=== PATIENT | male | born 1950 | race Caucasian/White ===

== ENCOUNTER 2017-01-10 09:51 | Inpatient (IN) ==
[2017-01-10] MEDS ORDERED: 0.9 % Sodium Chloride 1,000 ML ONE (13:42)
[2017-01-10] MEDS ORDERED: Naloxone 0.4 MG/ML INJ IVP PRN (13:49)
[2017-01-10] MEDS ORDERED: Ondansetron 4 MG/2 ML VIAL IVP PRN (13:49)
[2017-01-10] MEDS ORDERED: Acetaminophen 325 MG TABLET PO PRN (13:49)
[2017-01-10] MEDS ORDERED: Vancomycin 1,250 MG in D5% in Water 250 ML IVPB SCH (14:00)
--- NOTE | 2017-01-10 14:06 | Pulmonology Consult Note ---
Date of Encounter: 01/10/17 Time of Encounter: 14:05 Assessment and Plan (1) Shock Current Visit: Yes Status: Acute Shock is multifactorial. I suspect there is a component of hypovolemia, given poor PO intake for several days. Septic shock is also in the differential diagnosis, possible sources include an intra-abdominal source or catheter- related bloodstream infection (he has a Mediport in place). Also he is cold and clamped down on exam, cardiogenic shock seems less likely clinically, and I favor hypovolemia for this physical exam finding. * I will bolus him with an additional 2 L of isotonic fluids (he reportedly received 2 L in the emergency room prior to transfer), and continue LR infusion thereafter * Empiric treatment with vancomycin and Zosyn * Blood culture obtained from his Mediport at the outside hospital emergency room, I will also obtain a peripheral blood culture * Titrate norepinephrine for a goal mean arterial pressure of 65 mmHg * Added vasopressin and stress dose steroids (per home medication list he is on Decadron) * Will trend lactate (2) Abdominal pain Current Visit: No Status: Acute He has a very concerning abdominal exam with signs of peritonitis. I will obtain a stat CT scan of the abdomen with intravenous contrast (will aggressively hydrate prior to scan in light of acute kidney injury, due to severe nausea and vomiting he would not be tolerant of by mouth contrast). LFTs were unremarkable. I will check an amylase and lipase. As needed Dilaudid for abdominal pain. Will consult general surgery for evaluation, but I do not know if he will be a surgical candidate based on goals of care and underlying pancreatic cancer. Qualifiers: Abdominal location: unspecified location Qualified Code(s): R10.9 - Unspecified abdominal pain (3) Acute renal failure Current Visit: Yes Status: Acute Due to hypovolemia and ATN/hypoperfusion. Although his creatinine is technically within normal range, it is nearly doubled from his baseline. I suspect a chronically low creatinine due to malnutrition and poor muscle mass. * Continue aggressive IV fluid hydration and vasopressors to assist with renal perfusion * I did discuss the risk of intravenous contrast administration with the patient and his family, but I feel the benefit outweighs the risk in light of his acute abdomen Qualifiers: Acute renal failure type: with acute tubular necrosis Qualified Code(s): N17.0 - Acute kidney failure with tubular necrosis (4) Hematemesis Current Visit: Yes Status: Acute With intractable nausea/vomiting. Possible Radha-Michael tear. Hemoglobin was within normal range. I will give him twice daily intravenous proton pump inhibitor. Hold off on GI consult at this time, but we can reconsider based on clinical course. Nothing by mouth status. Qualifiers: Nausea presence: with nausea Qualified Code(s): K92.0 - Hematemesis; R11.0 - Nausea (5) Nausea & vomiting Current Visit: Yes Status: Acute Concern for acute intra-abdominal process such as bowel obstruction or bowel ischemia. As above, CT scan of the abdomen is pending. Intravenous Zofran when necessary. The shunt is attempting to focus more on comfort, and he does not want an NG tube placed. Qualifiers: Vomiting type: hematemesis Qualified Code(s): K92.0 - Hematemesis; R11.0 - Nausea (6) DNR (do not resuscitate) discussion Current Visit: Yes Status: Acute Patient has a history of pancreatic cancer. Review of his records reveals that he had an attempted Whipple procedure, which was aborted due to intraoperative findings. He is currently undergoing radiation therapy, and chemotherapy was reportedly held due to poor functional status. He clearly states DNR CCA DNI status. Prognosis is guarded, if he were to deteriorate further we would need to transition to comfort measures only and change CODE STATUS to DNR CC. History of Present Illness Consult date: 01/10/17 Requesting physician: Kyra Flores Reason for consult: other (shock) Chief complaint: Abdominal pain History of present illness: 66-year-old white male with a medical history significant for pancreatic cancer who presented to the [place] emergency department for evaluation of abdominal pain, nausea/vomiting, and poor by mouth intake. Evaluation revealed that the patient was in shock. He was given 2 L of IV fluids, antibiotics, and initiated on vasopressors. He was transferred to the [facility] for further evaluation and management. In speaking with the patient, he reports approximately 3 days of nausea and vomiting with poor by mouth intake. Nothing seems to make this better or worse. The abdominal pain has been progressive in nature. The pain is diffuse with significant tenderness to palpation throughout his belly. He has been unable to take his pain medication at home. He did had a bowel movement yesterday, which she reports was normal in color. He does admit to some hematemesis. He denies fever/chills. He has not urinated in the last 24 hours. Overall, he does feel the urge to urinate. No cough or sputum production. He does endorse some labored breathing. Past Med Surg Social Fam HX - Past Medical History Medical history: cancer Psychiatric history: no psych history - Past Surgical History Surgical History: other - Social History Smoking Status: Current every day smoker Packs per day: 1 Smokeless Tobacco Status: No Alcohol use: none Drug use: none - Family History Father Hx Family Cancer: Yes (pancreatic cancer) Medications and Allergies Ondansetron HCl 4 mg PO Q6H PRN #90 tablet 08/25/16 [Rx] Prochlorperazine Maleate [Compazine] 10 mg PO Q6HR PRN 08/31/16 [History] LORazepam [Lorazepam] 2 mg PO HS PRN #30 tablet 12/04/16 [Rx] Lipase/Protease/Amylase [Creon Dr 3,000 Units Capsule] 1 each PO BID 12/04/16 [ History] Dexamethasone [Decadron] 4 mg PO DAILY #21 tab 12/30/16 [Rx] HYDROcodone/Acet 5/325 mg [[place] 5-325 mg] 1 tab PO Q6H PRN #40 tab 12/30/16 [Rx ] Promethazine [Phenergan] 25 mg RC Q6HR PRN #40 supp.rect 01/06/17 [Rx] Fentanyl 12.5 mcg TD Q72H #10 patch.td72 01/08/17 [Rx] LORazepam [Ativan] 2 mg PO DAILY PRN #60 tablet 01/08/17 [Rx] Ondansetron ODT [Zofran ODT] 4 mg SL Q8HR PRN #10 tab.rapdis 01/08/17 [Rx] Oxycodone HCl 10 mg PO Q4H 01/10/17 [History] Allergies No Known Allergies Allergy (Verified 01/10/17 05:55) All Systems: A 10-system review of systems was performed and is negative for pertinent findings except as documented above in the HPI. Physical Examination Vital Signs: Vital signs reviewed. General: Ill-appearing man who is in acute distress and uncomfortable appearing Eyes: nonicteric ENT: oropharynx dry Neck: supple, no lymphadenopathy Lungs: Clear to auscultation bilaterally Cardiovascular: regular rate and rhythm Gastrointestinal: Abdomen is distended with diffuse tenderness to palpation and signs of peritonitis Integumentary: normal Extremities: Cool to the touch, no mottling noted Musculoskeletal: no deformities Neuro: normal mental status, non-focal exam Psych: mood appropriate, affect normal Results - Clinical Findings Intake & Output: Intake & Output 01/09/17 01/10/17 01/10/17 23:59 07:59 15:59 Weight 78.8 kg Consult Discharge Plan - Plan Referrals: NO,PCP [Primary Care Provider] -
[2017-01-10] MEDS: *HR* HYDROmorphone (PF) 1 MG/ML SYRINGE IVP PRN ×4 (14:26→23:32)
[2017-01-10] MEDS: 0.9 % Sodium Chloride 1,000 ML IVC SCH ×3 (14:27→16:24)
[2017-01-10] MEDS ORDERED: Norepinephrine 4 MG in D5% in Water 250 ML IVC SCH (14:30)
[2017-01-10 14:41] LABS: Amylase 8 Units/L (25-125)
[2017-01-10 14:42] LABS: Lipase < 4 Units/L (8-78)
[2017-01-10] MEDS: Vasopressin 20 UNIT in 0.9 % Sodium Chloride 50 ML IVC SCH (15:13)
[2017-01-10] MEDS: Piperacillin/Tazobactam 3.375 GM in D5% in Water (Mini-Bag+) 100 ML IVPB SCH ×2 (15:13→21:50)
[2017-01-10] MEDS: Vancomycin 1,250 MG in D5% in Water 250 ML IVPB SCH (15:13)
[2017-01-10] MEDS: Hydrocortisone Sodium Succ 100 MG/2 ML VIAL IVP SCH ×2 (16:20→23:32)
[2017-01-10] MEDS: *HR* Heparin 5,000 UNIT/ML VIAL SQ SCH ×2 (16:21→23:32)
[2017-01-10] MEDS: Ringers Solution, Lactated 1,000 ML IVC SCH ×2 (16:22→22:32)
--- NOTE | 2017-01-10 16:42 | Internal Med History&Physical ---
Date of Encounter: 01/10/17 Time of Encounter: 16:37 Assessment and Plan (1) Shock Current visit: Yes Status: Acute Likely multifactorial - septic shock given findings on CT abdomen/pelvis of colitis, but also hypovolemic given poor PO intake and vomiting for past several days. Possibility of upper GI bleed. Lactate 8 at OSH. Critical care team managing shock. - Levophed and vasopressin - IV fluids - Monitoring carefully in ICU - Vanc/zosyn to cover septic shock (likely abdominal source) (2) Pancreatic cancer Current visit: No Status: Chronic Follows [facility]. S/p chemoradiation. Unable to perform Whipple because of vascular encasement. Currently undergoing radiation therapy. - Patient states he is DNR/DNI Qualifiers: Pancreatic malignancy location: unspecified Qualified Code(s): C25.9 - Malignant neoplasm of pancreas, unspecified (3) Nausea & vomiting Current visit: Yes Status: Acute Patient has been experiencing N/V past 2-3 days, concern for hematemesis given brown discoloration around mouth. Patient unsure of what vomitus looked like, family did not see it either. - IV fluids - Antiemetics Qualifiers: Vomiting type: hematemesis Qualified Code(s): K92.0 - Hematemesis; R11.0 - Nausea (4) Abdominal pain Current visit: No Status: Acute Severe, physical exam concerning for acute abdomen. General surgery was consulted by critical care team, no plan for surgery currently, as CT did not show clear evidence of surgical emergency, and patient is poor surgical candidate. - General surgery consulted - Treating for colitis with vanc/zosyn Qualifiers: Abdominal location: unspecified location Qualified Code(s): R10.9 - Unspecified abdominal pain Internal Medicine - H&P: HPI Chief complaint: Abdominal pain Admitted From: Emergency Dept Plans for Post Hospital Care: Home History of present illness: Mr. Santoyo is a 66 year old male with history of pancreatic cancer who presented to his local ER this morning with several days of nausea, vomiting and worsening abdominal pain. He has been following with [facility] oncology for his pancreatic cancer after Whipple procedure was aborted at the [facility] 07/2106 because the tumor encased the SMV. He has undergone chemo and is currently undergoing radiation (in his fourth week). He has been experiencing nausea and vomiting, and his family noticed brown vomit around his lips - he is unsure what the vomit looked like. He presented to his local ER and was found to be markedly hypotensive. He was given IV fluids and started on vasopressors and transferred to [facility] for further management. On my evaluation of the patient in the ICU he is complaining of continued abdominal pain. Past Med Surg Social Fam HX - Past Medical History Medical history: cancer (Pancreatic cancer s/p chemoradiation, failed whipple secondary to encasement of vessels by tumor) Psychiatric history: no psych history - Past Surgical History Surgical History: other - Social History Smoking Status: Current every day smoker Packs per day: 1 Smokeless Tobacco Status: No Alcohol use: none Drug use: none - Family History Father Hx Family Cancer: Yes (pancreatic cancer) Internal Medicine - H&P: Meds Ondansetron HCl 4 mg PO Q6H PRN #90 tablet 08/25/16 [Rx] Prochlorperazine Maleate [Compazine] 10 mg PO Q6HR PRN 08/31/16 [History] LORazepam [Lorazepam] 2 mg PO HS PRN #30 tablet 12/04/16 [Rx] Lipase/Protease/Amylase [Creon Dr 3,000 Units Capsule] 3,000 unit PO TIDWM 12/04 [History] Dexamethasone [Decadron] 4 mg PO DAILY #21 tab 12/30/16 [Rx] HYDROcodone/Acet 5/325 mg [[place] 5-325 mg] 1 tab PO Q6H PRN #40 tab 12/30/16 [Rx ] Promethazine [Phenergan] 25 mg RC Q6HR PRN #40 supp.rect 01/06/17 [Rx] Oxycodone HCl 10 mg PO Q4H 01/10/17 [History] Allergies Oxycodone Adverse Reaction (Verified 01/10/17 14:51) Nausea All Systems PM: A 10-system review of systems was performed and is negative for pertinent findings except as documented above in the HPI. - Constitutional Vitals: Temp Pulse Resp BP Pulse Ox 97.8 F 111 24 114/71 93 L 01/10/17 15:00 01/10/17 14:22 01/10/17 14:22 01/10/17 14:22 01/10/17 14:22 General appearance: Present: A&O X 3 Exam: Patient in distress secondary to pain. Pale, appears chronically ill. - Head Head exam: Present: atraumatic - Eye Eye exam: Present: EOMI, sclera anicteric - ENT ENT exam: Present: mucous membranes dry - Neck Neck exam general surgery: Present: supple - Respiratory Respiratory exam: Present: decreased breath sounds - Cardiovascular Cardiovascular exam: Present: tachycardia. Absent: diastolic murmur, gallop, rubs, systolic murmur - GI/Abdominal GI/Abdominal exam: Present: distended, guarding, tenderness (tender throughout) Additional comments: Absent bowel sounds - Extremities Exam Extremities exam: Absent: pedal edema - Neurological Exam Neurological exam: Present: no focal deficits - Skin Skin exam: Absent: rash Internal Med - H&P Results - Labs Labs: Cardiac Enzymes 01/10/17 Range/Units 14:20 Troponin I 0.08 H* (0-0.03) ng/mL - Impressions ITS Impressions Abdomen CT 01/10/17 13:58 IMPRESSION: There is rim enhancing nodularity seen in the erma hepatitis, centered in the region of the gastrohepatic ligament, new compared to prior. Hydraulic Plumber area measures 2.7 cm x 2.1 cm . This appearance could be secondary to developing necrotic metastatic lymph nodes. However, postinflammatory infectious change such as developing pseudocysts from pancreatitis could also have this appearance. Moderate Wall thickening of the stomach, increased compared to prior. This is either due to post treatment change or underlying gastritis. Scattered tiny hypodense nodules throughout the liver, new compared to prior. Metastatic disease should be considered Slight increase in size of pancreatic head mass Increased pleural fluid and abdominal ascites D/ / Rodri Robles MD / Rodri Robles MD Interpreting Provider: Rodri Robles MD
[2017-01-10] MEDS: Pantoprazole 40 MG VIAL IVPB SCH (17:18)
--- NOTE | 2017-01-10 22:10 | General Surgery Consult Note ---
Date of Encounter: 01/10/17 Time of Encounter: 20:00 Assessment and Plan (1) Abdominal pain Current Visit: No Status: Acute The patient developed an acute abdomen after radiation therapy for pancreatic cancer. I personally reviewed the CAT scan and believe that he has significant gastritis and small bowel enteritis in the radiated field another possibility is typhlitis. He is a DNR and wants to avoid surgery at all costs. I will be glad to follow along with you and help with surgical decision making. Qualifiers: Abdominal location: generalized Qualified Code(s): R10.84 - Generalized abdominal pain History of Present Illness Consult date: 01/10/17 Requesting physician: Lex Ibanez History of present illness: The patient is a 66-year-old gentleman with pancreatic malignancy. He underwent surgical exploration. Surgical resection was impossible secondary to vascular encasement by tumor. He under went chemotherapy and radiation therapy. He is currently undergoing radiation therapy. He presented in shock and hypotension with acute abdominal pain. He was transferred to the intensive care unit and responded to pressor agents as well as fluid administration. The patient is awake and alert during examination. He was examined at 6:00 this evening and at 10:00 this evening. He has a good deal of upper abdominal pain. He has pain with motion. He has leukocytosis. He underwent CAT scan of the abdomen. I personally reviewed the CAT scan. CAT scan demonstrates a widely patent biliary stent. Pancreatic head mass and evidence of necrosis of periportal lymph nodes. Of great concern is thickening of his stomach and small bowel mucosa which I believe to be in the radiated field. The differential diagnosis is Typhlitis versus acute radiation enteritis. We will follow him closely for any signs of bowel perforation. At this point I do not believe that further radiation therapy warranted until he makes a complete recovery. Past Med Surg Social Fam HX - Past Medical History Medical history: cancer (Pancreatic cancer s/p chemoradiation, failed whipple secondary to encasement of vessels by tumor) Psychiatric history: no psych history - Past Surgical History Surgical History: other - Social History Smoking Status: Current every day smoker Packs per day: 1 Smokeless Tobacco Status: No Alcohol use: none Drug use: none - Family History Father Hx Family Cancer: Yes (pancreatic cancer) Medications and Allergies Ondansetron HCl 4 mg PO Q6H PRN #90 tablet 08/25/16 [Rx] Prochlorperazine Maleate [Compazine] 10 mg PO Q6HR PRN 08/31/16 [History] LORazepam [Lorazepam] 2 mg PO HS PRN #30 tablet 12/04/16 [Rx] Lipase/Protease/Amylase [Creon Dr 3,000 Units Capsule] 3,000 unit PO TIDWM 12/04 [History] Dexamethasone [Decadron] 4 mg PO DAILY #21 tab 12/30/16 [Rx] HYDROcodone/Acet 5/325 mg [[place] 5-325 mg] 1 tab PO Q6H PRN #40 tab 12/30/16 [Rx ] Promethazine [Phenergan] 25 mg RC Q6HR PRN #40 supp.rect 01/06/17 [Rx] Oxycodone HCl 10 mg PO Q4H 01/10/17 [History] Allergies Oxycodone Adverse Reaction (Verified 01/10/17 14:51) Nausea Review of Systems All systems PM: reviewed and no additional remarkable complaints except as stated All systems PM: A 10-system review of systems was performed and is negative for pertinent findings except as documented above in the HPI. General Surgery Exam Initial Vital Signs Temp Pulse Resp BP Pulse Ox 97.1 F L 119 12 92/52 97 01/10/17 13:55 01/10/17 13:55 01/10/17 13:55 01/10/17 13:55 01/10/17 13:55 - General physical appearance well developed, well nourished, severe pain - ENT normal pinna, normal nares, normal mucosa, no hearing loss, no congestion - Neck no masses, no bruits, trachea midline, no lymphadectomy, no venous distension - Respiratory normal expansion, normal respiratory effort, clear to percussion, clear to auscultation - Cardiovascular Cardiovascular exam: Present: tachycardia (hypotensive at time of examination at 6:00 normotensive at 10:00) - Abdomen Abdomen general surgery: Present: guarding, rebound Abdominal Tenderness: Present: epigastic, RUQ, LUQ - Integumentary Integumentary general surgery: Present: warm and dry, no abnormal pigmentation - Neurologic Present: CN 2-12 grossly intact, normal coordination, normal sensation - Psychiatric Psychiatric general surgery: Present: appropriate, oriented to person, oriented to place, oriented to time, speech is normal, memory intact Exam Initial Vital Signs Temp Pulse Resp BP Pulse Ox 97.1 F L 119 12 92/52 97 01/10/17 13:55 01/10/17 13:55 01/10/17 13:55 01/10/17 13:55 01/10/17 13:55 Results - Labs Abnormal lab results Lactic Acid 7.8 mmol/L (0.5-2.2) H* 01/10/17 19:43 Troponin I 0.05 ng/mL (0-0.03) H* 01/10/17 19:43 Amylase 8 Units/L (25-125) L 01/10/17 14:20 Lipase < 4 Units/L (8-78) L 01/10/17 14:20 All other labs normal. - Imaging CT scan - abdomen: image reviewed (I personally reviewed the CAT scan of the abdomen. I believe that he has acute radiation enteritis in the radiated field affecting both gastric and small bowel mucosa. This may be inflammation from a secondary cause. There are no abscesses. There is air in the biliary tract secondary to biliary stent. He does have evidence of tumor necrosis in the erma hepatis.) Consult Discharge Plan - Plan Referrals: NO,PCP [Primary Care Provider] -
[2017-01-11] MEDS: Vasopressin 20 UNIT in 0.9 % Sodium Chloride 50 ML IVC SCH ×3 (00:25→23:36)
[2017-01-11 02:30] LABS: Hematocrit 36.3 % (37.5-50.1); Hemoglobin 12.2 g/dL (12.9-16.9); Mean Corpuscular HGB Conc 33.6 g/dL (31.6-35.5); Mean Corpuscular Hemoglobin 29.3 pg (28.0-33.3); Mean Corpuscular Volume 87.3 fL (83.0-100.0); Mean Platelet Volume 10.5 fL (9.4-12.4); Platelet Count 183 K/mcL (140-400); Red Blood Count 4.16 M/mcL (4.19-5.50); Red Cell Distribution Width 16.8 % (11.5-14.5)
[2017-01-11] MEDS: *HR* HYDROmorphone (PF) 1 MG/ML SYRINGE IVP PRN ×6 (02:39→20:01)
[2017-01-11 02:42] LABS: Prothrombin Time 22.1 Seconds (9.4-12.1)
[2017-01-11 02:45] LABS: Albumin/Globulin Ratio 0.4 (1.1-2.2); Bilirubin,Total 0.5 mg/dL (0.2-1.2); Globulin 3.2 g/dL (2.4-3.5); Magnesium 1.1 mg/dL (1.6-2.6); Phosphorous 7.4 mg/dL (2.3-4.7); Potassium 3.7 mEq/L (3.5-4.5)
[2017-01-11 02:51] LABS: Albumin 1.3 g/dL (3.5-5.0); Calcium 6.6 mg/dL (8.6-10.8); Total Protein 4.5 g/dL (6.0-8.3)
[2017-01-11] MEDS ORDERED: Potassium Phosphate 44 MEQ in 0.9 % Sodium Chloride 250 ML IVPB PRN (03:47)
[2017-01-11] MEDS ORDERED: Sodium Phosphate 30 MMOL in D5% in Water 100 ML IVPB PRN (03:47)
[2017-01-11] MEDS: Vancomycin 1,250 MG in D5% in Water 250 ML IVPB SCH ×2 (03:55→15:26)
[2017-01-11] MEDS: Calcium Gluconate 1,000 MG in D5% in Water 100 ML IVPB PRN ×2 (04:11→22:27)
[2017-01-11] MEDS: Magnesium Sulfate 2 GM in D5% in Water 100 ML IVPB PRN ×2 (04:12→22:27)
[2017-01-11] MEDS: Ringers Solution, Lactated 1,000 ML IVC SCH ×3 (05:23→20:00)
[2017-01-11] MEDS: Pantoprazole 40 MG VIAL IVPB SCH ×2 (05:24→17:47)
[2017-01-11] MEDS: Piperacillin/Tazobactam 3.375 GM in D5% in Water (Mini-Bag+) 100 ML IVPB SCH ×3 (05:24→22:26)
[2017-01-11] MEDS: Hydrocortisone Sodium Succ 100 MG/2 ML VIAL IVP SCH ×4 (05:24→23:22)
[2017-01-11 06:28] LABS: VBG HCO3 20.1 mEq/L (21-27); VBG PH 7.22 pH Units (7.32-7.42)
[2017-01-11] MEDS: *HR* Heparin 5,000 UNIT/ML VIAL SQ SCH ×3 (07:58→23:22)
[2017-01-11] MEDS ORDERED: Ringers Solution, Lactated 1,000 ML IVC ONE (08:43)
--- NOTE | 2017-01-11 09:15 | Pulmonology Progress Note ---
Date of Encounter: 01/11/17 Time of Encounter: 09:04 Assessment and Plan (1) Shock Current Visit: Yes Status: Acute Shock is multifactorial. I suspect there is a component of hypovolemia, given poor PO intake for several days. Septic shock is also in the differential diagnosis, possible sources include an intra-abdominal source or catheter- related bloodstream infection (he has a Mediport in place). Also he is cold and clamped down on exam, cardiogenic shock seems less likely clinically, and I favor hypovolemia for this physical exam finding. * He has responded nicely to aggressive IV fluid hydration with improvement of blood pressure and vasopressor requirements * Empiric treatment with vancomycin and Zosyn * Blood culture obtained from his Mediport at the outside hospital emergency room, I will also obtain a peripheral blood culture here * Titrate norepinephrine for a goal mean arterial pressure of 65 mmHg * Added vasopressin and stress dose steroids (per home medication list he is on Decadron) * Lactate is trending downward, initially 7.8 (2) Abdominal pain Current Visit: No Status: Acute He has a very concerning abdominal exam with signs of peritonitis. CT scan of the abdomen with intravenous contrast (he was aggressively hydrated prior to the administration of contrast) severe gastroenteritis with impressive thickening of the stomach and bowel lang. I suspect severe infectious gastroenteritis or radiation enteritis. General surgery has been consult, and I appreciate Dr. Redman's assistance. Qualifiers: Abdominal location: generalized Qualified Code(s): R10.84 - Generalized abdominal pain (3) Acute renal failure Current Visit: Yes Status: Acute Due to hypovolemia and ATN/hypoperfusion. He also received IV contrast administration. Although his creatinine is not significantly elevated, it is more than double of his baseline creatinine (which is chronically low due to malnutrition and poor muscle mass). * Continue aggressive IV fluid hydration and vasopressors to assist with renal perfusion * I did discuss the risk of intravenous contrast administration with the patient and his family prior to CT scan with contrast, as I felt the benefit outweighed the risk in light of his acute abdomen * Continue to trend urine output and Chem-7 as we resuscitate Qualifiers: Acute renal failure type: with acute tubular necrosis Qualified Code(s): N17.0 - Acute kidney failure with tubular necrosis (4) Hematemesis Current Visit: Yes Status: Acute With intractable nausea/vomiting. Possible Radha-Michael tear. Hemoglobin was within normal range upon arrival, and has not dropped significantly despite IV fluid hydration. Continue twice daily intravenous proton pump inhibitor. Hold off on GI consult at this time, but we can reconsider based on clinical course. Nothing by mouth status. Qualifiers: Nausea presence: with nausea Qualified Code(s): K92.0 - Hematemesis; R11.0 - Nausea (5) Nausea & vomiting Current Visit: Yes Status: Acute Secondary to severe gastroenteritis. Intravenous Zofran when necessary. The patient is attempting to focus more on comfort, and he does not want an NG tube placed. Qualifiers: Vomiting type: hematemesis Qualified Code(s): K92.0 - Hematemesis; R11.0 - Nausea (6) DNR (do not resuscitate) discussion Current Visit: Yes Status: Acute Patient has a history of pancreatic cancer. Review of his records reveals that he had an attempted Whipple procedure, which was aborted due to intraoperative findings (vascular involvement of tumor). He is currently undergoing radiation therapy, and chemotherapy was reportedly held due to poor functional status. He clearly states DNR CCA DNI status. Prognosis is guarded, if he were to deteriorate further we would need to transition to comfort measures only and change CODE STATUS to DNR CC. Continue ICU level of care Subjective Principal diagnosis: Shock Interval history: No acute overnight events. The patient was weaned off vasopressors. Abdominal pain persists. Nausea and vomiting is improved. No bowel movements in the past 24 hours. All other systems reviewed and otherwise negative. Objective PUL Vital signs: Last Vital Signs Temp 99.5 F 01/11/17 05:34 Pulse 131 01/11/17 08:33 Resp 24 01/11/17 08:33 BP 89/59 01/11/17 08:33 Pulse Ox 96 01/11/17 08:33 General: Ill-appearing man who is in acute distress and uncomfortable appearing Eyes: nonicteric ENT: oropharynx dry Neck: supple, no lymphadenopathy Lungs: Clear to auscultation bilaterally Cardiovascular: regular rate and rhythm Gastrointestinal: Abdomen is distended with diffuse tenderness to palpation and signs of peritonitis Integumentary: normal Extremities: Cool to the touch, no mottling noted Musculoskeletal: no deformities Neuro: normal mental status, non-focal exam Psych: mood appropriate, affect normal Results - Laboratory Findings CBC and BMP: 01/11/17 02:22 01/11/17 02:22 PT/INR, D-dimer PT 22.1 Seconds (9.4-12.1) H 01/11/17 02:22 Abnormal lab findings: Abnormal lab results WBC 20.3 K/mcL (4.3-11.1) H 01/11/17 02:22 RBC 4.16 M/mcL (4.19-5.50) L 01/11/17 02:22 Hgb 12.2 g/dL (12.9-16.9) L 01/11/17 02:22 Hct 36.3 % (37.5-50.1) L 01/11/17 02:22 RDW 16.8 % (11.5-14.5) H 01/11/17 02:22 PT 22.1 Seconds (9.4-12.1) H 01/11/17 02:22 VBG pH 7.22 pH Units (7.32-7.42) L 01/11/17 06:22 VBG pO2 56 mmHg (25-40) H 01/11/17 06:22 VBG HCO3 20.1 mEq/L (21-27) L 01/11/17 06:22 Chloride 110 mEq/L (98-109) H 01/11/17 02:22 Carbon Dioxide 17 mEq/L (19-29) L 01/11/17 02:22 BUN 33 mg/dL (8-26) H D 01/11/17 02:22 Creatinine 1.44 mg/dL (0.72-1.25) H 01/11/17 02:22 Est GFR ( Amer) 59 (> 60) L 01/11/17 02:22 Est GFR (Non-Af Amer) 49 (> 60) L 01/11/17 02:22 Glucose 112 mg/dL (70-99) H 01/11/17 02:22 POC Glucose 115 (58-89) H 01/10/17 23:49 Lactic Acid 3.6 mmol/L (0.5-2.2) H 01/11/17 06:22 Calcium 6.6 mg/dL (8.6-10.8) L D 01/11/17 02:22 Phosphorus 7.4 mg/dL (2.3-4.7) H 01/11/17 02:22 Magnesium 1.1 mg/dL (1.6-2.6) L 01/11/17 02:22 AST 74 Units/L (5-34) H 01/11/17 02:22 Troponin I 0.04 ng/mL (0-0.03) H* 01/11/17 02:22 Serum Total Protein 4.5 g/dL (6.0-8.3) L D 01/11/17 02:22 Albumin 1.3 g/dL (3.5-5.0) L D 01/11/17 02:22 Albumin/Globulin Ratio 0.4 (1.1-2.2) L 01/11/17 02:22 Amylase 8 Units/L (25-125) L 01/10/17 14:20 Lipase < 4 Units/L (8-78) L 01/10/17 14:20 - Clinical Findings Intake & Output: Intake & Output 01/10/17 01/11/17 01/11/17 23:59 07:59 15:59 Intake Total 2350 / 2350 1869 / 1869 Output Total 650 / 650 230 / 230 Balance 1700 / 1700 1639 / 1639 Weight 78.8 kg Consult Discharge Plan - Plan Referrals: NO,PCP [Primary Care Provider] -
--- NOTE | 2017-01-11 18:37 | General Surgery Progress Note ---
Date of Encounter: 01/11/17 Time of Encounter: 18:35 - Assessment and Plan (1) Abdominal pain Current Visit: No Status: Acute The patient developed an acute abdomen after radiation therapy for pancreatic cancer. It is likely that he has significant gastritis and small bowel enteritis in the radiated field another possibility is typhlitis. He is a DNR and wants to avoid surgery at all costs. I will be glad to follow along with you and help with surgical decision making. 01/11/17: Pt. is still having abdominal pain, but nausea is improved. Currently in ICU but no longer requiring vasopressor support, however he remains hypotensive and tachycardic. No surgical interventions at this time. Qualifiers: Qualified Code(s): R10.84 - Generalized abdominal pain Subjective Patient reports: feels better, still having pain, no bowel movement Narrative: Patient seen and examined. Pt. currently in ICU. He remains hypotensive but has been weaned off vasopressors. He states he is still having abdominal pain. Continues to have nausea, but is improved. Pt. is a DNR CCA DNI. Objective Vital Signs - Last 8 Hours Temp Pulse Resp BP Pulse Ox 01/11/17 18:19 125 20 84/50 100 01/11/17 17:44 122 20 110/66 100 01/11/17 16:30 128 22 87/60 96 01/11/17 15:59 97.6 F 01/11/17 15:23 130 24 105/72 92 L 01/11/17 14:15 126 20 106/68 96 01/11/17 13:44 126 20 95/62 89 L 01/11/17 12:22 132 24 82/52 95 01/11/17 11:37 130 24 84/60 98 01/11/17 11:30 98.6 F Intake and Output 01/11/17 01/11/17 01/11/17 07:59 15:59 23:59 Intake Total 1868 350 / 350 Output Total 230 / 230 400 / 400 Balance 1639 / 1639 172 / 172 350 / 350 Intake: IV Fluids 1868 350 / 350 Levophed 4 MG In Dextrose 254 / 254 5% 250 ML @ 15 MCG/MIN 57.15 mls/hr IVC .CONT VERITO Rx#:[id number] Lactated Ringers 1,000 ML 1000 / 1000 2000 / 2000 @ 150 mls/hr IVC .Q6H40M [facility] Rx#:[id number] Vasostrict 20 UNIT In 0.9 51 / 51 25 / 25 % Sodium Chloride 50 ML @ 0.03 UNITS/MIN 4.59 mls /hr IVC .Q11H7M [facility] Rx#: [id number] Calcium Gluconate 1,000 110 / 110 MG In Dextrose 5% 100 ML @ 50 mls/hr IVPB Q6HR PRN Rx#:[id number] Magnesium Sulfate 2 GM In 104 / 104 Dextrose 5% 100 ML @ 50 mls/hr IVPB Q6H PRN Rx#: [id number] Zosyn 3.375 GM In 100 / 100 100 / 100 100 / 100 Dextrose 5% (Minibag+) 100 ML 100 ML @ 25 mls/hr IVPB Q8H [facility] Rx#: [id number] Vancocin 1,250 MG In 250 / 250 250 / 250 Dextrose 5% 250 ML @ 166. 67 mls/hr IVPB Q12H [facility] Rx#:[id number] Output: Catheter 230 / 230 400 / 400 Other: Weight 78.8 kg Blood Glucose* 115 99 Patient Weight 01/11/17 23:59 Weight 78.8 kg - Additional Exam - General physical appearance well developed, well nourished, moderate pain - ENT normal pinna, normal nares, normal mucosa, no hearing loss, no congestion - Neck no masses, no bruits, trachea midline, no lymphadectomy, no venous distension - Respiratory normal expansion, normal respiratory effort, clear to percussion, clear to auscultation - Cardiovascular Cardiovascular exam: Present: tachycardia and hypotension - Abdomen Abdomen general surgery: Present: guarding, rebound Abdominal Tenderness: Present: epigastic, RUQ, LUQ - Integumentary Integumentary general surgery: Present: warm and dry, no abnormal pigmentation - Neurologic Present: CN 2-12 grossly intact, normal coordination, normal sensation - Psychiatric Psychiatric general surgery: Present: appropriate, oriented to person, oriented to place, oriented to time, speech is normal, memory intact - Labs 01/12/17 03:47 01/12/17 03:47 Diabetes panel 01/11/17 Range/Units 02:22 Sodium 139 (136-145) mEq/L Potassium 3.7 (3.5-4.5) mEq/L Chloride 110 H (98-109) mEq/L Carbon Dioxide 17 L (19-29) mEq/L BUN 33 H D (8-26) mg/dL Creatinine 1.44 H (0.72-1.25) mg/dL Glucose 112 H (70-99) mg/dL Calcium 6.6 L D (8.6-10.8) mg/dL AST 74 H (5-34) Units/L ALT 51 (0-55) Units/L Alkaline Phosphatase 64 (38-126) Units/L Albumin 1.3 L D (3.5-5.0) g/dL Calcium panel 01/11/17 Range/Units 02:22 Calcium 6.6 L D (8.6-10.8) mg/dL Phosphorus 7.4 H (2.3-4.7) mg/dL Albumin 1.3 L D (3.5-5.0) g/dL Pituitary panel 01/11/17 Range/Units 02:22 Sodium 139 (136-145) mEq/L Potassium 3.7 (3.5-4.5) mEq/L Chloride 110 H (98-109) mEq/L Carbon Dioxide 17 L (19-29) mEq/L BUN 33 H D (8-26) mg/dL Creatinine 1.44 H (0.72-1.25) mg/dL Glucose 112 H (70-99) mg/dL Calcium 6.6 L D (8.6-10.8) mg/dL Adrenal panel 01/11/17 Range/Units 02:22 Sodium 139 (136-145) mEq/L Potassium 3.7 (3.5-4.5) mEq/L Chloride 110 H (98-109) mEq/L Carbon Dioxide 17 L (19-29) mEq/L BUN 33 H D (8-26) mg/dL Creatinine 1.44 H (0.72-1.25) mg/dL Glucose 112 H (70-99) mg/dL Calcium 6.6 L D (8.6-10.8) mg/dL Total Bilirubin 0.5 (0.2-1.2) mg/dL AST 74 H (5-34) Units/L ALT 51 (0-55) Units/L Alkaline Phosphatase 64 (38-126) Units/L Albumin 1.3 L D (3.5-5.0) g/dL Consult Discharge Plan - Plan Referrals: NO,PCP [Primary Care Provider] - - Attending Attestation I examined this patient and my medical decision-making was reviewed with the COURT SUPERVISOR/PA/Advanced Practice Nurse/Resident Physician. I agree with the documented findings, disposition and treatment plan as described except to the extent set forth below. The patient is seen and evaluated on morning rounds with the resident. He continues to have abdominal pain. He states that he is improved compared to yesterday. At this point I would like to follow him clinically to see if he continues to make continued improvement. He may require CAT scan tomorrow to gauge his overall improvement. Mohit Redman MD FACS
[2017-01-11] MEDS ORDERED: 0.9 % Sodium Chloride 1,000 ML ONE (21:13)
[2017-01-11] MEDS ORDERED: *HR* Metoprolol 5 MG/5 ML VIAL IVP ONE ×2 (21:13→21:29)
[2017-01-11] MEDS ORDERED: 0.9 % Sodium Chloride 1,000 ML IVC ONE (21:29)
--- NOTE | 2017-01-11 21:40 | Event Note ---
Date of Encounter: 01/11/17 Time of Encounter: 21:34 Called by RN to see patient for tachycardia with HR 160-170's. I requested STAT EKG, which showed A Fib/RVR. I ordered Lopressor 5 mg IV STAT followed by 5 mg IV Q6H PRN. After one dose of Lopressor, HR dropped to 120-130's. Pt off pressors currently, but he may need to resume pressors. I also requested STAT chem-7, Mg, Calcium, and Phosphorus. If Lopressor does not stabilize rhythm, will consider starting Cardizem or Amiodarone drips.
[2017-01-11 21:52] LABS: Ionized Calcium 0.93 mmol/L (1.15-1.35)
[2017-01-11 21:56] LABS: BUN/Creatinine Ratio 25 (6-26); Blood Urea Nitrogen 31 mg/dL (8-26); Carbon Dioxide 13 mEq/L (19-29); Chloride 98 mEq/L (98-109); Glucose 405 mg/dL (70-99); Magnesium 0.9 mg/dL (1.6-2.6); Osmolality,Calculated 290 (280-300); Phosphorous 4.2 mg/dL (2.3-4.7); Potassium 3.6 mEq/L (3.5-4.5); Sodium 128 mEq/L (136-145); eGFR For African Americans > 60 (> 60); eGFR For Non-African Americans 59 (> 60)
[2017-01-11 22:00] LABS: Calcium 5.8 mg/dL (8.6-10.8)
[2017-01-11] MEDS ORDERED: Amiodarone Premix 360 MG/200 ML BAG IVC ONE (23:03)
[2017-01-11] MEDS ORDERED: Amiodarone Premix 360 MG/200 ML BAG IVC SCH (23:15)
[2017-01-12] MEDS ORDERED: *HR* Metoprolol 5 MG/5 ML VIAL IVP SCH
[2017-01-12] MEDS: Magnesium Sulfate 2 GM in D5% in Water 100 ML IVPB PRN (01:07)
[2017-01-12] MEDS ORDERED: *HR* Metoprolol 5 MG/5 ML VIAL IVP PRN (01:43)
[2017-01-12] MEDS: Vancomycin 1,250 MG in D5% in Water 250 ML IVPB SCH ×2 (02:52→14:17)
[2017-01-12] MEDS: Ringers Solution, Lactated 1,000 ML IVC SCH ×5 (02:52→20:38)
[2017-01-12] MEDS: *HR* HYDROmorphone (PF) 1 MG/ML SYRINGE IVP PRN ×3 (02:52→07:45)
[2017-01-12 03:55] LABS: Hematocrit 31.5 % (37.5-50.1); Mean Corpuscular HGB Conc 33.3 g/dL (31.6-35.5); Mean Corpuscular Hemoglobin 28.5 pg (28.0-33.3); Mean Corpuscular Volume 85.6 fL (83.0-100.0); Mean Platelet Volume 10.5 fL (9.4-12.4); Platelet Count 107 K/mcL (140-400); Red Blood Count 3.68 M/mcL (4.19-5.50); Red Cell Distribution Width 17.1 % (11.5-14.5)
[2017-01-12 04:02] LABS: INR 2.2; Prothrombin Time 24.6 Seconds (9.4-12.1)
[2017-01-12 04:03] LABS: Hemoglobin 10.5 g/dL (12.9-16.9)
[2017-01-12 04:10] LABS: Albumin 1.2 g/dL (3.5-5.0); Albumin/Globulin Ratio 0.4 (1.1-2.2); Bilirubin,Total 0.5 mg/dL (0.2-1.2); Calcium 6.9 mg/dL (8.6-10.8); Globulin 3.3 g/dL (2.4-3.5); Phosphorous 5.5 mg/dL (2.3-4.7); Potassium 3.9 mEq/L (3.5-4.5); Total Protein 4.5 g/dL (6.0-8.3)
[2017-01-12 04:12] LABS: Ionized Calcium 1.02 mmol/L (1.15-1.35)
[2017-01-12 04:19] LABS: Magnesium 2.3 mg/dL (1.6-2.6)
[2017-01-12 04:26] LABS: Monocytes # 0.4 K/mcL (0.0-1.3); Neutrophils # 19.4 K/mcL (1.6-8.9)
[2017-01-12 04:27] LABS: Platelet Estimate Slight Decrease (Normal)
[2017-01-12] MEDS: Calcium Gluconate 1,000 MG in D5% in Water 100 ML IVPB PRN ×3 (05:21→22:05)
[2017-01-12] MEDS: Amiodarone Premix 360 MG/200 ML BAG IVC SCH ×2 (05:21→16:11)
[2017-01-12] MEDS: Piperacillin/Tazobactam 3.375 GM in D5% in Water (Mini-Bag+) 100 ML IVPB SCH ×3 (05:26→21:17)
[2017-01-12] MEDS: Hydrocortisone Sodium Succ 100 MG/2 ML VIAL IVP SCH ×4 (05:26→23:17)
[2017-01-12] MEDS: Pantoprazole 40 MG VIAL IVPB SCH ×2 (05:26→17:01)
[2017-01-12] MEDS: 0.9 % Sodium Chloride 1,000 ML IVC SCH ×3 (07:04→07:09)
[2017-01-12] MEDS: *HR* Heparin 5,000 UNIT/ML VIAL SQ SCH ×3 (07:13→23:17)
[2017-01-12] MEDS ORDERED: Aminoglycoside Consult 1 EACH MC ONE (07:32)
[2017-01-12] MEDS: Vasopressin 20 UNIT in 0.9 % Sodium Chloride 50 ML IVC SCH ×2 (08:46→21:08)
[2017-01-12] MEDS: FentaNYL (PF) 1,000 MCG in 0.9 % Sodium Chloride 80 ML IVC SCH ×2 (08:49→23:00)
--- NOTE | 2017-01-12 11:13 | Pulmonology Progress Note ---
<Bakari Israel - Last Filed: 01/12/17 13:09> Date of Encounter: 01/12/17 Time of Encounter: 11:09 Assessment and Plan (1) Shock Current Visit: Yes Status: Acute 66 Mwith history of pancreatic cancer presented from [place] emergency department with chief complaint of right upper quadrant abdominal pain, nausea , vomiting and poor intake by mouth. Patient was found to be hypotensive 92/48, lactic acid of 7.8, wbc 20. CT abdomen/pelvis showed pancreatitic head mass with new hepatic lesions possible metastasis and stomach wall thickening. Patient was given 1 dose of Invanz at [place] [facility]. On arrival to [facility] he was started on levophed and vasopressin, IVF, vanca nd zosyn. Source of sepsis was thought to be either abdominal in origin or patient mediport. 2nd to hypovolemia from vomiting and poor oral intake, possible septic shock. Blood cultures have grown gram positive cocci streptococcus species-however only one culture was drawn on 01/10. -WBC elevated at 20, lactic acid trending down. -Repeat blood culture shows no growth preliminarily -Plan-continue vanc and zosyn Hypotension -patient is off pressors today - I/O +[id number] cumulative -decrease LR to 75cc/hr (2) Pancreatic cancer Current Visit: No Status: Chronic Patient was diagnosed with Stage III pancreatic cancer in July. At that time he had a pancreatic mass 2.8x4.4 cm in the pancreatic head region. He underwent Whipple's procedure at [facility] which was aborted due to vascular involvement. Afterwards patient was started on chemotherapy and chemoradiation. Chemoradiation was d/c and patient is on 4th week of radiation therapy. He is Dr. Solares's patient. -CT Abdomen shows new hepatic liver lesions possible metastasis -Have consulted oncology for recommendations on care Qualifiers: Pancreatic malignancy location: unspecified Qualified Code(s): C25.9 - Malignant neoplasm of pancreas, unspecified (3) Goals of care, counseling/discussion Current Visit: Yes Status: Acute Patient has pancreatic cancer stage III with possible progression to stage IV as CT abdomen pelvis shows liver lesions that may possibly metastasis. -Oncology is being consulted for further recommendations -palliative is being consulted to discuss with patient future goals, including pain control, possible hospice -we have started patient on fentanyl drip for pain control. -further treatment plan and interventions will largely depend on patients future goals of care. (4) Acute renal failure Current Visit: Yes Status: Acute baseline serum creatinine is 0.6. -DAVID possibley 2nd to hypoperfusion/hypovolemia. -Patient also underwent CT abdomen/pelvis with IV contrast which can be contributory. -patients Scr wrosened from yesterday from 1.23 to 1.64 -this acute worsening is likely 2nd t starting vanc and zosyn -continue IVF and repeat BMP in morning -Patient continues to produce urine. Qualifiers: Acute renal failure type: with acute tubular necrosis Qualified Code(s): N17.0 - Acute kidney failure with tubular necrosis (5) Nausea & vomiting Current Visit: Yes Status: Acute Patient presented with N/V. Initially concern was of acute intra-abdominal process. CT showed possible metastasis of pancreatic cancer to liver and moderate wall thickening of the stomach which could indicate gastritis. Patient was given Zofran IV for relief and his N/V has resolved. Surgery was consulted for further recommendations and state patient has acute abdomen 2nd to radiation therapy: possibe gastritis or small bowel enteritis or typhilitis. Patient is DNRCCADNI. They recommend supportive care at this point. Appreciate recommendations. Qualifiers: Vomiting type: hematemesis Qualified Code(s): K92.0 - Hematemesis; R11.0 - Nausea (6) Hematemesis Current Visit: Yes Status: Resolved there was a concern for hialrio-Michael tear 2nd to intractable nausea/vomiting. Patients N?V has resolved. His hgb is stable. Continue PPI Qualifiers: Nausea presence: with nausea Qualified Code(s): K92.0 - Hematemesis; R11.0 - Nausea (7) Atrial fibrillation Current Visit: Yes Status: Acute yesterday evening patient was evaluated for tachycardia. HR was 160-170s. EKG showed afb RVR He was given IV lopressor and started on amiodarone. -Today HR is at 120s -continue amiodarone as rate control medications may decrease patients BP. He remains hypotensive. Qualifiers: Atrial fibrillation type: chronic Qualified Code(s): I48.2 - Chronic atrial fibrillation (8) DVT prophylaxis Current Visit: Yes Status: Acute continue heparin. Subjective Principal diagnosis: Shock Interval history: 6-year-old male with history of pancreatic head mass presented to local ER with nausea vomiting abdominal pain. he underwent Whipple's procedure at [facility] which was aborted secondary to vascular involvement. patient was found to be hypotensiveon presentation. Patient was admitted septic shock secondary to elevation of lactic acid of 8, and culture is growing Streptococcus. This morning patient was drowsy after receiving IV push Dilaudid. He complained of diffuse abdominal pain. Objective PUL Vital signs: Last Vital Signs Temp 98.2 F 01/12/17 07:10 Pulse 116 01/12/17 10:00 Resp 16 01/12/17 10:00 BP 90/64 01/12/17 10:00 Pulse Ox 95 01/12/17 10:00 General appearance: other (drowsy and distressed 2nd to abdominal pain. ) Eyes: nonicteric ENT: oropharynx moist Mallampati (class): 2 Neck: no lymphadenopathy Effort: normal Auscultation: bilateral: clear Cardiovascular: irregular rhythm (tachycardic) Gastrointestinal: hypoactive bowel sounds, tender (diifuse ), other (midline scar from previous whipples procedure) Extremities: no cyanosis, no edema, no clubbing normal mental status mood appropriate Results - Laboratory Findings CBC and BMP: 01/12/17 03:47 01/12/17 03:47 PT/INR, D-dimer PT 24.6 Seconds (9.4-12.1) H 01/12/17 03:47 Abnormal lab findings: Abnormal lab results WBC 20.6 K/mcL (4.3-11.1) H 01/12/17 03:47 RBC 3.68 M/mcL (4.19-5.50) L 01/12/17 03:47 Hgb 10.5 g/dL (12.9-16.9) L D 01/12/17 03:47 Hct 31.5 % (37.5-50.1) L 01/12/17 03:47 RDW 17.1 % (11.5-14.5) H 01/12/17 03:47 Plt Count 107 K/mcL (140-400) L 01/12/17 03:47 Band Neutrophils % 18.0 % (0-4) H 01/12/17 03:47 Myelocytes % 4.0 % (0) H 01/12/17 03:47 Neutrophils # 19.4 K/mcL (1.6-8.9) H 01/12/17 03:47 Platelet Estimate Slight Decrease (Normal) L 01/12/17 03:47 PT 24.6 Seconds (9.4-12.1) H 01/12/17 03:47 VBG pH 7.22 pH Units (7.32-7.42) L 01/11/17 06:22 VBG pO2 56 mmHg (25-40) H 01/11/17 06:22 VBG HCO3 20.1 mEq/L (21-27) L 01/11/17 06:22 Sodium 132 mEq/L (136-145) L 01/12/17 03:47 Carbon Dioxide 18 mEq/L (19-29) L 01/12/17 03:47 BUN 42 mg/dL (8-26) H D 01/12/17 03:47 Creatinine 1.64 mg/dL (0.72-1.25) H 01/12/17 03:47 Est GFR ( Amer) 51 (> 60) L 01/12/17 03:47 Est GFR (Non-Af Amer) 42 (> 60) L 01/12/17 03:47 Glucose 164 mg/dL (70-99) H 01/12/17 03:47 POC Glucose 111 (58-89) H 01/11/17 23:36 Lactic Acid 3.6 mmol/L (0.5-2.2) H 01/11/17 06:22 Calcium 6.9 mg/dL (8.6-10.8) L D 01/12/17 03:47 Ionized Calcium 1.02 mmol/L (1.15-1.35) L 01/12/17 03:47 Phosphorus 5.5 mg/dL (2.3-4.7) H 01/12/17 03:47 AST 123 Units/L (5-34) H 01/12/17 03:47 ALT 86 Units/L (0-55) H 01/12/17 03:47 Troponin I 0.04 ng/mL (0-0.03) H* 01/11/17 02:22 Serum Total Protein 4.5 g/dL (6.0-8.3) L 01/12/17 03:47 Albumin 1.2 g/dL (3.5-5.0) L 01/12/17 03:47 Albumin/Globulin Ratio 0.4 (1.1-2.2) L 01/12/17 03:47 Amylase 8 Units/L (25-125) L 01/10/17 14:20 Lipase < 4 Units/L (8-78) L 01/10/17 14:20 Vancomycin Trough 48.8 mcg/mL (10-20) H* 01/12/17 03:47 - Microbiology Findings Microbiology Findings: Microbiology, Last 48 Hours 01/11/17 01:51 Blood Culture - Preliminary Peripheral Venipuncture No growth. - Clinical Findings Intake & Output: Intake & Output 01/11/17 01/12/17 01/12/17 23:59 07:59 15:59 Intake Total 2554 / 2554 2320 / 2320 1105 / 1105 Output Total 175 / 175 700 / 700 Balance 2379 / 2379 1620 / 1620 1105 / 1105 Weight 91.4 kg Consult Discharge Plan - Plan Referrals: NO,PCP [Primary Care Provider] - <Erica Perez - Last Filed: 01/12/17 16:49> Objective PUL Vital signs: Last Vital Signs Temp 98.4 F 01/12/17 12:06 Pulse 117 01/12/17 16:00 Resp 28 01/12/17 16:00 BP 99/70 01/12/17 16:00 Pulse Ox 95 01/12/17 16:00 Results - Laboratory Findings CBC and BMP: 01/12/17 03:47 01/12/17 03:47 PT/INR, D-dimer PT 24.6 Seconds (9.4-12.1) H 01/12/17 03:47 Abnormal lab findings: Abnormal lab results WBC 20.6 K/mcL (4.3-11.1) H 01/12/17 03:47 RBC 3.68 M/mcL (4.19-5.50) L 01/12/17 03:47 Hgb 10.5 g/dL (12.9-16.9) L D 01/12/17 03:47 Hct 31.5 % (37.5-50.1) L 01/12/17 03:47 RDW 17.1 % (11.5-14.5) H 01/12/17 03:47 Plt Count 107 K/mcL (140-400) L 01/12/17 03:47 Band Neutrophils % 18.0 % (0-4) H 01/12/17 03:47 Myelocytes % 4.0 % (0) H 01/12/17 03:47 Neutrophils # 19.4 K/mcL (1.6-8.9) H 01/12/17 03:47 Platelet Estimate Slight Decrease (Normal) L 01/12/17 03:47 PT 24.6 Seconds (9.4-12.1) H 01/12/17 03:47 VBG pH 7.22 pH Units (7.32-7.42) L 01/11/17 06:22 VBG pO2 56 mmHg (25-40) H 01/11/17 06:22 VBG HCO3 20.1 mEq/L (21-27) L 01/11/17 06:22 Sodium 132 mEq/L (136-145) L 01/12/17 03:47 Carbon Dioxide 18 mEq/L (19-29) L 01/12/17 03:47 BUN 42 mg/dL (8-26) H D 01/12/17 03:47 Creatinine 1.64 mg/dL (0.72-1.25) H 01/12/17 03:47 Est GFR ( Amer) 51 (> 60) L 01/12/17 03:47 Est GFR (Non-Af Amer) 42 (> 60) L 01/12/17 03:47 Glucose 164 mg/dL (70-99) H 01/12/17 03:47 POC Glucose 124 (58-89) H 01/12/17 11:41 Lactic Acid 3.6 mmol/L (0.5-2.2) H 01/11/17 06:22 Calcium 6.9 mg/dL (8.6-10.8) L D 01/12/17 03:47 Ionized Calcium 1.05 mmol/L (1.15-1.35) L 01/12/17 11:40 Phosphorus 5.5 mg/dL (2.3-4.7) H 01/12/17 03:47 AST 123 Units/L (5-34) H 01/12/17 03:47 ALT 86 Units/L (0-55) H 01/12/17 03:47 Troponin I 0.04 ng/mL (0-0.03) H* 01/11/17 02:22 Serum Total Protein 4.5 g/dL (6.0-8.3) L 01/12/17 03:47 Albumin 1.2 g/dL (3.5-5.0) L 01/12/17 03:47 Albumin/Globulin Ratio 0.4 (1.1-2.2) L 01/12/17 03:47 Amylase 8 Units/L (25-125) L 01/10/17 14:20 Lipase < 4 Units/L (8-78) L 01/10/17 14:20 Vancomycin Trough 24.9 mcg/mL (10-20) H* 01/12/17 13:45 - Microbiology Findings Microbiology Findings: Microbiology, Last 48 Hours 01/11/17 01:51 Blood Culture - Preliminary Peripheral Venipuncture No growth. - Clinical Findings Intake & Output: Intake & Output 01/12/17 01/12/17 01/12/17 07:59 15:59 23:59 Intake Total 2320 / 2320 1672 / 1672 200 / 200 Output Total 700 / 700 350 / 350 Balance 1620 / 1620 1322 / 1322 200 / 200 Weight 91.4 kg - Attending Attestation I examined this patient and my medical decision-making was reviewed with the FREE LANCE MODEL/PA/Advanced Practice Nurse/Resident Physician. I agree with the documented findings, disposition and treatment plan as described except to the extent set forth below. Patient seen and examined. Labs, radiology, chart personally reviewed. Agree with resident's history and physical, assessment, plan with following comments: JOB TRACER: Patient follows commands, Pulmonary: Acceptable oxygenation and ventilation, however his condition could deteriorate with pain and atelectesis. Incentive spirometry as much as possible. Cardiovascular: acceptable BP. GI: Nutrition per dietary and GI prophylaxis per routine. Discussed with surgeon and agree with the plan. Heme: DVT prophylaxis per routine. Discussed with oncology and palliative care to see patient. ID: Continue antibiotics and plan to de-escalation Renal; urine out put and renal funtion reviewed Endorcine: blood glucose is monitored Lines: all lines checked and no evidence of infections Skin: skin care to prevent pressure ulcers per nursing routine care Overall prognosis is very poor and I feel pain control is main treatment for now.
--- NOTE | 2017-01-12 13:26 | Oncology Inp Consult Note ---
Date of Encounter: 01/12/17 Time of Encounter: 13:00 Assessment and Plan (1) Pancreatic cancer Status: Chronic Assessment and plan: Unresectable, locally advanced pancreatic adenoca, s/p chemotherapy and currently on NANOSYSTEMS ENGINEER with imaging showing possible progression with worsening pain symptoms multifactorial, from chemotherapy/radiation enteritis/inflammation vs progressive metastatic adenopathy. New liver lesions reported since 11/11 possibly metastatic. Findings suggestive of the above from recent scans discussed with patient, daughter and bedside. Clinically tachypneic with HR uncontrolled in A fib, requiring Iv amiodarone and fentanyl drip for pain control. Hold off on further imaging today as he is in worse pain with movements and unable to drink contrast. On BSA for sepsis/ septic shock. BC Strept in 1/2 cx. Renal insufficiency due to above. Patient is agreeable to meet with palliative care team do discuss goals of care, palliative care options and pain control. Discussed plan with ICU staff and attending. Qualifiers: Pancreatic malignancy location: unspecified Qualified Code(s): C25.9 - Malignant neoplasm of pancreas, unspecified - Data of Consult Requesting Physician: Ritesh Lackey MD Primary Care Provider: PCP NO - Consult Narrative Reason for consult: pancreatic cancer History of present illness: Mr. Santoyo is a 66 year old male with diagnosis of pancreatic cancer unresectable, s/p neoadjuvnat chemotherapy followed by ongoing NANOSYSTEMS ENGINEER, xeloda held last after seen in clinic with pain abdomen due to ongoing treatments. Patient had initial w/u with a CT scan of chest abdomen and pelvis at diagnosis showed a heterogeneous irregular hypodense pancreatic mass 2.8x4.4cm abutting the vasculature in the pancreatic head region compatible with pancreatic cancer. Patient had undergone ERCP and metallic stent placement. He also underwent EUS with biopsy. He was then admitted 08/13/2016 for a Whipple procedure by Dr. Ch, procedure was aborted due to encasement of vasculature. He started C1 gemzar/abraxane. He was due to receive q 2wkly dose 09/25/16. He developed rectal bleeding and was seen in the ER Ct abdomen done 09/20/16 showed inflammation around pancreatic head and second portion of duodenum with moderate ductal dil small pelvic ascitis, moderate mesentric edema. Boderline 1.5-2cm reactive vs peripancreatic mildly enlarged adenopathy He then started RT---12/23/16, ongoing with xeloda. Xeloda was held last wk due to worsening symptoms. HE was hydrated and supportive meds given 01/08/17. Patient developed nausea over wkend and declined intake and worsening pain. Admitted with hypotension, elevated lactic acid and sepsis. He is off vasopressors on zosyn, vancomycin. On fentanyl due to pain, titrated to pain. CT abd showed increased erma hepatic adenopathy, new tiny liver lesion, nodular areas in liver concerning for mets and progression. Overall per family tachynea slightly improved and pain under control if he does not move. BC gm positive strept 1/2 sets. He is awake and oriented, ROS as noted above. HR 120s A fib on amiodarone drip, SBP at 96-98mmhg Past Med Surg Social Fam HX - Past Medical History Medical history: cancer (Pancreatic cancer s/p chemoradiation, failed whipple secondary to encasement of vessels by tumor) Psychiatric history: no psych history - Past Surgical History Surgical History: other - Social History Smoking Status: Current every day smoker Packs per day: 1 Smokeless Tobacco Status: No Alcohol use: none Drug use: none - Family History Father Hx Family Cancer: Yes (pancreatic cancer) Medications and Allergies Ondansetron HCl 4 mg PO Q6H PRN #90 tablet 08/25/16 [Rx] Prochlorperazine Maleate [Compazine] 10 mg PO Q6HR PRN 08/31/16 [History] LORazepam [Lorazepam] 2 mg PO HS PRN #30 tablet 12/04/16 [Rx] Lipase/Protease/Amylase [Creon Dr 3,000 Units Capsule] 3,000 unit PO TIDWM 12/04 [History] Dexamethasone [Decadron] 4 mg PO DAILY #21 tab 12/30/16 [Rx] HYDROcodone/Acet 5/325 mg [[place] 5-325 mg] 1 tab PO Q6H PRN #40 tab 12/30/16 [Rx ] Promethazine [Phenergan] 25 mg RC Q6HR PRN #40 supp.rect 01/06/17 [Rx] Oxycodone HCl 10 mg PO Q4H 01/10/17 [History] Allergies Oxycodone Adverse Reaction (Verified 01/10/17 14:51) Nausea Review of systems: as in HPI Oncology - Exam - Constitutional Vitals: Temp Pulse Resp BP Pulse Ox 98.4 F 133 24 91/69 95 01/12/17 12:06 01/12/17 13:00 01/12/17 13:00 01/12/17 13:00 01/12/17 13:00 Exam: mild-moderate distress, hyperventilating - Head Head exam: Present: atraumatic Additional comments: anicteric sclera - Eye Eye exam: Present: EOMI, normal appearance - ENT ENT exam: Present: mucous membranes dry - Neck Neck exam: Present: normal inspection - Respiratory Respiratory exam: Present: CTAB, tachypnea - Cardiovascular Cardiovascular exam: Present: irregular rhythm, +S1, +S2 - GI/Abdominal GI/Abdominal exam: Present: diminished bowel sounds, distended, soft - Extremities Exam Additional comments: no calf tenderness - Neurological Exam Neurological exam: Present: alert, CN II-XII intact - Skin Skin exam: Present: normal color Oncology - Results - Labs Labs: Short CBC 01/12/17 Range/Units 03:47 WBC 20.6 H (4.3-11.1) K/mcL Hgb 10.5 L D (12.9-16.9) g/dL Hct 31.5 L (37.5-50.1) % Plt Count 107 L (140-400) K/mcL Neutrophils # 19.4 H (1.6-8.9) K/mcL BMP 01/11/17 01/12/17 21:30 03:47 Sodium 128 L D 132 L Potassium 3.6 3.9 Chloride 98 105 Carbon Dioxide 13 L 18 L BUN 31 H 42 H D Creatinine 1.23 1.64 H Glucose 405 H 164 H Calcium 5.8 L* 6.9 L D Liver Function 01/12/17 Range/Units 03:47 Total Bilirubin 0.5 (0.2-1.2) mg/dL AST 123 H (5-34) Units/L ALT 86 H (0-55) Units/L Alkaline Phosphatase 69 (38-126) Units/L Albumin 1.2 L (3.5-5.0) g/dL - Imaging and Cardiology CT scan - abdomen Status: image reviewed by me Consult Discharge Plan - Plan Referrals: NO,PCP [Primary Care Provider] -
--- NOTE | 2017-01-12 15:00 | General Surgery Progress Note ---
Date of Encounter: 01/12/17 Time of Encounter: 14:51 - Assessment and Plan (1) Abdominal pain Current Visit: Yes Status: Chronic The patient developed an acute abdomen after radiation therapy for pancreatic cancer. It is likely that he has significant gastritis and small bowel enteritis in the radiated field another possibility is typhlitis. He is a DNR and wants to avoid surgery at all costs. I will be glad to follow along with you and help with surgical decision making. 01/11/17: Pt. is still having abdominal pain, but nausea is improved. Currently in ICU but no longer requiring vasopressor support, however he remains hypotensive and tachycardic. No surgical interventions at this time. 01/12/17: pt. is critically ill. He remains hypotensive and tachycardic. Blood cultures revealed gram positive cocci. Oncology recommended no further imaging at this time. No surgical interventions at this time. Will continue to follow along clinically. Qualifiers: Abdominal location: generalized Qualified Code(s): R10.84 - Generalized abdominal pain Subjective Patient reports: still having pain, no flatus, no bowel movement Narrative: Patient seen and examined. Critically ill In ICU; hypotensive requiring pressor support. Continues to have severe abdominal pain. States pain is less when not moving. Requiring 10L high flow O2 to maintain oxygenation. Objective Vital Signs - Last 8 Hours Temp Pulse Resp BP Pulse Ox 01/12/17 14:00 119 18 93/66 95 01/12/17 13:00 133 24 91/69 95 01/12/17 12:06 98.4 F 01/12/17 11:00 124 16 100/67 88 L 01/12/17 10:00 116 16 90/64 95 01/12/17 09:00 113 16 85/68 995 H 01/12/17 08:00 119 16 90/62 92 L 01/12/17 07:20 128 01/12/17 07:10 98.2 F 01/12/17 07:00 130 18 88/63 92 L Intake and Output 01/11/17 01/12/17 01/12/17 23:59 07:59 15:59 Intake Total 2554 / 2554 2320 / 2320 1548 / 1548 Output Total 175 / 175 700 / 700 350 / 350 Balance 2379 / 2379 1620 / 1620 1198 / 1198 Intake: IV Fluids 2554 / 2554 2200 / 2200 1548 / 1548 0.9 % Sodium Chloride 1, 1000 / 1000 000 ML @ 3750 mls/hr IVC .Q16M ONE Rx#:[id number] Amiodarone 360mg/200mL 200 / 200 Drip Premix 360 mg In 200 ml @ 1 MG/MIN 33.333 mls /hr IVC ONCE ONE Rx#: [id number] FentaNYL (PF) 1,000 MCG 29 / 29 In 0.9 % Sodium Chloride 80 ML @ 50 MCG/HR 5 mls/ hr IVC CONT [facility] Rx#: [id number] Lactated Ringers 1,000 ML 1000 / 1000 1000 / 1000 1419 / 1419 @ 150 mls/hr IVC .Q6H40M [facility] Rx#:[id number] Vasostrict 20 UNIT In 0.9 26 / 26 % Sodium Chloride 50 ML @ 0.03 UNITS/MIN 4.59 mls /hr IVC .Q11H7M [facility] Rx#: [id number] Calcium Gluconate 1,000 220 / 220 MG In Dextrose 5% 100 ML @ 50 mls/hr IVPB Q6HR PRN Rx#:[id number] Magnesium Sulfate 2 GM In 104 / 104 104 / 104 Dextrose 5% 100 ML @ 50 mls/hr IVPB Q6H PRN Rx#: [id number] Zosyn 3.375 GM In 100 / 100 100 / 100 100 / 100 Dextrose 5% (Minibag+) 100 ML 100 ML @ 25 mls/hr IVPB Q8H [facility] Rx#: [id number] Potassium Chloride 10 mEq 100 / 100 300 / 300 /100mL 10 meq In 100 ml @ 100 mls/hr IVPB Q1H PRN Rx#:[id number] Vancocin 1,250 MG In 250 / 250 250 / 250 Dextrose 5% 250 ML @ 166. 67 mls/hr IVPB Q12H [facility] Rx#:[id number] Oral 120 / 120 Tube Feeding 0 / 0 Output: Catheter 175 / 175 700 / 700 350 / 350 Other: Weight 91.4 kg Blood Glucose* 111 124 Patient Weight 01/12/17 23:59 Weight 91.4 kg - General physical appearance severe distress, chronically ill - Eyes normal ocular movement - Neck Neck exam: trachea midline - Respiratory wheezing: bilateral - Cardiovascular Cardiovascular exam: Present: irregular rhythm - Abdomen Abdomen: Present: bowel sounds present, tender. Absent: soft Abdominal Tenderness: diffusely - Neurologic CN 2-12 grossly intact - Labs 01/12/17 03:47 01/12/17 03:47 Diabetes panel 01/11/17 01/12/17 Range/Units 21:30 03:47 Sodium 128 L D 132 L (136-145) mEq/L Potassium 3.6 3.9 (3.5-4.5) mEq/L Chloride 98 105 (98-109) mEq/L Carbon Dioxide 13 L 18 L (19-29) mEq/L BUN 31 H 42 H D (8-26) mg/dL Creatinine 1.23 1.64 H (0.72-1.25) mg/dL Glucose 405 H 164 H (70-99) mg/dL Calcium 5.8 L* 6.9 L D (8.6-10.8) mg/dL AST 123 H (5-34) Units/L ALT 86 H (0-55) Units/L Alkaline Phosphatase 69 (38-126) Units/L Albumin 1.2 L (3.5-5.0) g/dL Calcium panel 01/11/17 01/12/17 Range/Units 21:30 03:47 Calcium 5.8 L* 6.9 L D (8.6-10.8) mg/dL Phosphorus 4.2 5.5 H (2.3-4.7) mg/dL Albumin 1.2 L (3.5-5.0) g/dL Pituitary panel 01/11/17 01/12/17 Range/Units 21:30 03:47 Sodium 128 L D 132 L (136-145) mEq/L Potassium 3.6 3.9 (3.5-4.5) mEq/L Chloride 98 105 (98-109) mEq/L Carbon Dioxide 13 L 18 L (19-29) mEq/L BUN 31 H 42 H D (8-26) mg/dL Creatinine 1.23 1.64 H (0.72-1.25) mg/dL Glucose 405 H 164 H (70-99) mg/dL Calcium 5.8 L* 6.9 L D (8.6-10.8) mg/dL Adrenal panel 03/19/17 03/20/17 Range/Units 21:30 03:47 Sodium 128 L D 132 L (136-145) mEq/L Potassium 3.6 3.9 (3.5-4.5) mEq/L Chloride 98 105 (98-109) mEq/L Carbon Dioxide 13 L 18 L (19-29) mEq/L BUN 31 H 42 H D (8-26) mg/dL Creatinine 1.23 1.64 H (0.72-1.25) mg/dL Glucose 405 H 164 H (70-99) mg/dL Calcium 5.8 L* 6.9 L D (8.6-10.8) mg/dL Total Bilirubin 0.5 (0.2-1.2) mg/dL AST 123 H (5-34) Units/L ALT 86 H (0-55) Units/L Alkaline Phosphatase 69 (38-126) Units/L Albumin 1.2 L (3.5-5.0) g/dL Consult Discharge Plan - Plan Referrals: NO,PCP [Primary Care Provider] - - Attending Attestation I examined this patient and my medical decision-making was reviewed with the RIFLE CASE REPAIRER/PA/Advanced Practice Nurse/Resident Physician. I agree with the documented findings, disposition and treatment plan as described except to the extent set forth below. The patient is seen and evaluated with the resident on morning rounds. He continues to have abdominal pain or CAT scan with oral contrast to check on his progress. I am very concerned that he continues to have pain of this magnitude. I will follow closely throughout the day with the ICU team. Mohit Redman MD FACS
[2017-01-12] MEDS ORDERED: Bisacodyl 10 MG RECTAL SUPPOSITORY RC PRN (16:11)
--- NOTE | 2017-01-12 16:12 | Palliative - Consult Note ---
Date of Encounter: 01/12/17 Time of Encounter: 16:10 - Assessment and Plan (1) Abdominal pain Current Visit: Yes Status: Chronic Assessment and plan: Currently on fentanyl drip at 75 g per hour. Titrate for comfort baseline ICU guidelines. Hydromorphone 1 mg every 2 hours as needed for breakthrough pain. He has used little hydromorphone since the initiation of the fentanyl drip. Continue to monitor Qualifiers: Abdominal location: generalized Qualified Code(s): R10.84 - Generalized abdominal pain (2) Sepsis associated hypotension Current Visit: Yes Status: Acute (3) Goals of care, counseling/discussion Current Visit: Yes Status: Acute Assessment and plan: Plan for family meeting on 01/13/2017 between 1 and 1:30 in the afternoon. Establish CODE STATUS of DNR comfort care arrest/DNI. The palliative care service will continue to follow. Appreciate oncology input (4) Atrial fibrillation Current Visit: Yes Status: Acute Qualifiers: Atrial fibrillation type: chronic Qualified Code(s): I48.2 - Chronic atrial fibrillation (5) Pancreatic cancer Current Visit: Yes Status: Chronic Assessment and plan: Oncology following. Qualifiers: Pancreatic malignancy location: unspecified Qualified Code(s): C25.9 - Malignant neoplasm of pancreas, unspecified Palliative-CN HPI - Data of Consult Patient: new to practice Consult date: 01/12/17 Requesting Physician: Ritesh Lackey MD Primary Care Provider: PCP NO - Consult Narrative Palliative Care/Comfort Measures: Palliative care Reason for consult: Goals of care History of present illness: Mr. Santoyo is a 66 year old male patient with a history of pancreatic cancer. Mr. Santoyo was evaluated at the [facility] [place]. He was admitted in September 2016 for a Whipple procedure, but was aborted due to vascular involvement. Since then, he has undergone chemotherapy with Gemzar/ Abraxane that was started in August 2016. He started radiation therapy in November 2016, and has completed 3 weeks. Mr. Santoyo presented to the emergency department at [place] with complaints of nausea vomiting and abdominal pain. He was found to be hypotensive with concerns of septic shock and was transferred to [facility]. Upon evaluation in the ICU he was placed on vasopressor support for his hypotension along with antibiotic care and IV fluids. Surgical services were consulted for acute abdominal pain. Mr. Santoyo also developed atrial fibrillation with rapid ventricular rate. Oncology services is also following for assistance with treatment options. The palliative care team was consulted to assist with goals of care planning and pain management. Upon initial exam, Mr. Santoyo did report abdominal pain rated 4/10 and described as a sharp shooting pain. He reports pain level of 4/10 is "tolerable " for him, as long as he does not move. Mr. Santoyo has a history of constipation problems that are exacerbated by opioids. He has a very weak cough , but coughing increases his abdominal pain so he is not aggressively doing cough and deep breathing exercises. He currently denies nausea and vomiting. Up until a few days prior to admission, he was still active, and able to do activities such as walk to the mailbox. His appetite has been dwindling as his abdominal pain increases. CC: Ritesh Lackey MD Past Med Surg Social Fam HX - Past Medical History Source: patient, old records reviewed, obtained from family Medical history: cancer (Pancreatic cancer s/p chemoradiation, failed whipple secondary to encasement of vessels by tumor) Psychiatric history: no psych history - Past Surgical History Surgical History: other (Aborted Whipple procedure) - Social History Smoking Status: Current every day smoker Packs per day: 1 Smokeless Tobacco Status: No Alcohol use: none Drug use: none Current living situation: Home - Independent - Family History Father Hx Family Cancer: Yes (pancreatic cancer) Medications and Allergies Ondansetron HCl 4 mg PO Q6H PRN #90 tablet 08/25/16 [Rx] Prochlorperazine Maleate [Compazine] 10 mg PO Q6HR PRN 08/31/16 [History] LORazepam [Lorazepam] 2 mg PO HS PRN #30 tablet 12/04/16 [Rx] Lipase/Protease/Amylase [Creon Dr 3,000 Units Capsule] 3,000 unit PO TIDWM 12/04 [History] Dexamethasone [Decadron] 4 mg PO DAILY #21 tab 12/30/16 [Rx] HYDROcodone/Acet 5/325 mg [[place] 5-325 mg] 1 tab PO Q6H PRN #40 tab 12/30/16 [Rx ] Promethazine [Phenergan] 25 mg RC Q6HR PRN #40 supp.rect 01/06/17 [Rx] Oxycodone HCl 10 mg PO Q4H 01/10/17 [History] Allergies Oxycodone Adverse Reaction (Verified 01/10/17 14:51) Nausea - Constitutional Constitutional ROS PAL: decreased appetite, lethargy - EENT Eyes: no change in vision Ears: no decreased hearing Ears, nose, mouth, throat: dry mouth, sore throat, no dysphagia - Cardiovascular Cardiovascular ROS: irregular heart rhythm, palpitations, no chest pain, no chest pain with activity - Respiratory Respiratory: cough (Weak), chest congestion - Gastrointestinal Gastrointestinal: abdominal pain, bloating, no hematemesis, no hematochezia, no nausea, no vomiting - Genitourinary Genitourinary ROS male: no difficulty urinating - Musculoskeletal Musculoskeletal ROS IM: muscle weakness - Integumentary ROS Integumentary: no wounds - Neurological Neurological ROS: confusion, weakness (Global), no lack of coordination - Psychiatric Psychiatric general PM: no anxiety Palliative Care-Exam - Constitutional Vitals: Temp Pulse Resp BP Pulse Ox 98.4 F 117 28 99/70 95 01/12/17 12:06 01/12/17 16:00 01/12/17 16:00 01/12/17 16:00 01/12/17 16:00 Exam: 66-year-old male patient lying in bed. Patient refuses to move as it exacerbates his pain. Patient appears chronically ill. - Head Head Exam: Present: atraumatic - Eye Eye exam: Present: EOMI Pupils: Present: PERRL - ENT ENT exam: Present: mucous membranes dry - Respiratory Respiratory exam: Present: decreased breath sounds (Shallow respirations), rhonchi, tachypnea (Respiratory rate 28) Additional comments: Very weak nonproductive moist cough - Cardiovascular Cardiovascular exam: Present: irregular rhythm, tachycardia - GI/Abdominal Exam GI/Abdominal exam: Present: firm, normal bowel sounds (Sounds active 4 quadrants), tenderness - Catheter Type: Urethral ([place]) - Extremities Exam Extremities exam: Present: pedal edema - Neurological Exam Neurological exam: Present: alert, strengths equal and symetr throughout (Weak but equal bilateral grasp, movement of extremities 4) - Psychiatric Psychiatric exam: Present: flat affect. Absent: agitated, anxious - Skin Skin exam: Present: dry, warm Additional comments: Healed mid abdominal incision, radiation markers in place Internal Medicine - CN: Reslt - Labs CBC & Chem 7: 01/12/17 03:47 01/12/17 03:47 Labs: Short CBC 01/12/17 Range/Units 03:47 WBC 20.6 H (4.3-11.1) K/mcL Hgb 10.5 L D (12.9-16.9) g/dL Hct 31.5 L (37.5-50.1) % Plt Count 107 L (140-400) K/mcL Neutrophils # 19.4 H (1.6-8.9) K/mcL BMP 01/11/17 01/12/17 21:30 03:47 Sodium 128 L D 132 L Potassium 3.6 3.9 Chloride 98 105 Carbon Dioxide 13 L 18 L BUN 31 H 42 H D Creatinine 1.23 1.64 H Glucose 405 H 164 H Calcium 5.8 L* 6.9 L D Liver Function 01/12/17 Range/Units 03:47 Total Bilirubin 0.5 (0.2-1.2) mg/dL AST 123 H (5-34) Units/L ALT 86 H (0-55) Units/L Alkaline Phosphatase 69 (38-126) Units/L Albumin 1.2 L (3.5-5.0) g/dL - ABG Interpretation ABG results: PT/INR, D-dimer PT 24.6 Seconds (9.4-12.1) H 01/12/17 03:47 Consult Discharge Plan - Plan Referrals: NO,PCP [Primary Care Provider] - Palliative Quality Palliative Quality: Screen for Code Status: Yes, Screen for Goals of Care: Yes, Screen for Pain: Yes, If Pain Regimen Started, Initiate Bowel Regimen: Yes, Screen for Nausea/Vomitting: Yes Code Status: 01/10/17 13:49 Resuscitation Status: Active [RES] Routine Comment: Resuscitation Status: [id number]
--- NOTE | 2017-01-12 16:26 | Electrocardiograph Report ---
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
[2017-01-13 03:48] LABS: Hematocrit 30.4 % (37.5-50.1); Hemoglobin 10.4 g/dL (12.9-16.9); Immature Platelets 7.7 % (1.1-6.1); Mean Corpuscular HGB Conc 34.2 g/dL (31.6-35.5); Mean Corpuscular Hemoglobin 28.7 pg (28.0-33.3); Mean Corpuscular Volume 83.7 fL (83.0-100.0); Red Blood Count 3.63 M/mcL (4.19-5.50); Red Cell Distribution Width 16.8 % (11.5-14.5)
[2017-01-13 03:51] LABS: INR 1.6; Prothrombin Time 17.2 Seconds (9.4-12.1)
[2017-01-13 03:52] LABS: Ionized Calcium 1.09 mmol/L (1.15-1.35)
[2017-01-13 03:56] LABS: Magnesium 2.1 mg/dL (1.6-2.6)
[2017-01-13 04:04] LABS: Albumin/Globulin Ratio 0.3 (1.1-2.2); Bilirubin,Total 0.5 mg/dL (0.2-1.2); Calcium 7.7 mg/dL (8.6-10.8); Globulin 3.7 g/dL (2.4-3.5); Phosphorous 5.1 mg/dL (2.3-4.7); Potassium 3.6 mEq/L (3.5-4.5); Total Protein 4.8 g/dL (6.0-8.3)
[2017-01-13 04:12] LABS: Albumin 1.1 g/dL (3.5-5.0)
[2017-01-13] MEDS: Calcium Gluconate 1,000 MG in D5% in Water 100 ML IVPB PRN (04:25)
[2017-01-13] MEDS: Amiodarone Premix 360 MG/200 ML BAG IVC SCH (04:25)
[2017-01-13] MEDS ORDERED: Vancomycin 1,250 MG in D5% in Water 250 ML IVPB SCH (05:00)
[2017-01-13] MEDS: Hydrocortisone Sodium Succ 100 MG/2 ML VIAL IVP SCH ×3 (05:49→17:42)
[2017-01-13] MEDS: Pantoprazole 40 MG VIAL IVPB SCH (05:49)
[2017-01-13] MEDS: Piperacillin/Tazobactam 3.375 GM in D5% in Water (Mini-Bag+) 100 ML IVPB SCH ×2 (05:49→12:59)
[2017-01-13] MEDS: Ringers Solution, Lactated 1,000 ML IVC SCH (06:57)
[2017-01-13] MEDS: Vasopressin 20 UNIT in 0.9 % Sodium Chloride 50 ML IVC SCH (07:03)
[2017-01-13] MEDS: *HR* Heparin 5,000 UNIT/ML VIAL SQ SCH (07:04)
--- NOTE | 2017-01-13 08:17 | Pulmonology Progress Note ---
<Bakari Israel - Last Filed: 01/13/17 11:09> Date of Encounter: 01/13/17 Time of Encounter: 08:12 Assessment and Plan (1) Shock Current Visit: Yes Status: Resolved 66 Mwith history of pancreatic cancer presented from [place] emergency department with chief complaint of right upper quadrant abdominal pain, nausea , vomiting and poor intake by mouth. Patient was found to be hypotensive 92/48, lactic acid of 7.8, wbc 20. CT abdomen/pelvis showed pancreatitic head mass with new hepatic lesions possible metastasis and stomach wall thickening. Patient was given 1 dose of Invanz at [facility]. On arrival to [facility] he was started on levophed and vasopressin, IVF, vanc and zosyn. Source of sepsis was thought to be either abdominal in origin or patient's mediport. 2nd to hypovolemia from vomiting and poor oral intake, possible septic shock. Blood cultures have grown gram positive cocci streptococcus species-however only one culture was drawn on 01/10. -WBC continues to be 20, lactic acid trending down. -Repeat blood culture shows no growth preliminarily. will await sensitivit -Plan-continue vanc and zosyn Hypotension -Continues to be off pressers - I/O +[id number] cumulative -decrease LR to 50cc/hr Plan of care will depend of patients future goal of care. Due to hx of pancreatic cancer patients prognosis is poor. According to nurse patient does not want any further treatment. He refused suctioning of secretions. Patient is DNR CCADNI. Palliative will discuss this matter further with him in the afternoon. (2) Pancreatic cancer Current Visit: Yes Status: Chronic Patient was diagnosed with Stage III pancreatic cancer in July. At that time he had a pancreatic mass 2.8x4.4 cm in the pancreatic head region. He underwent Whipple's procedure at [facility] which was aborted due to vascular involvement. Afterwards patient was started on chemotherapy and chemoradiation. Chemoradiation was d/c because patient did not tolerate the procedure and patient is on 4th week of radiation therapy. He is Dr. Solares's patient. -CT Abdomen shows new hepatic liver lesions possible metastasis -Have consulted oncology for recommendations on care. Appreciate input. Qualifiers: Pancreatic malignancy location: unspecified Qualified Code(s): C25.9 - Malignant neoplasm of pancreas, unspecified (3) Goals of care, counseling/discussion Current Visit: Yes Status: Acute Patient has pancreatic cancer stage III with possible progression to stage IV as CT abdomen pelvis shows liver lesions that may possibly metastasis. -Oncology is being consulted for further recommendations -palliative is being consulted to discuss with patient future goals, including pain control, possible hospice -we have started patient on fentanyl drip for pain control. -further treatment plan and interventions will largely depend on patients future goals of care. (4) Acute renal failure Current Visit: Yes Status: Acute baseline serum creatinine is 0.6. -DAVID possibley 2nd to hypoperfusion/hypovolemia. -Patient also underwent CT abdomen/pelvis with IV contrast which can be contributory. -patients Scr has improved from yesterday -yesterdays worsening of renal function likely 2nd to starting vanc and zosyn -continue IVF and repeat BMP in morning -Patient continues to produce urine. Qualifiers: Acute renal failure type: with acute tubular necrosis Qualified Code(s): N17.0 - Acute kidney failure with tubular necrosis (5) Nausea & vomiting Current Visit: Yes Status: Resolved Patient presented with N/V. Initially concern was of acute intra-abdominal process. CT showed possible metastasis of pancreatic cancer to liver and moderate wall thickening of the stomach which could indicate gastritis. Patient was given Zofran IV for relief and his N/V has resolved. Surgery was consulted for further recommendations and state patient has acute abdomen 2nd to radiation therapy: possibe gastritis or small bowel enteritis or typhilitis. Patient is DNRCCADNI. They recommend supportive care at this point. Appreciate recommendations. Qualifiers: Vomiting type: hematemesis Qualified Code(s): K92.0 - Hematemesis; R11.0 - Nausea (6) Hematemesis Current Visit: Yes Status: Resolved there was a concern for hilario-Michael tear 2nd to intractable nausea/vomiting. Patients N?V has resolved. His hgb is stable. Continue PPI Qualifiers: Nausea presence: with nausea Qualified Code(s): K92.0 - Hematemesis; R11.0 - Nausea (7) Atrial fibrillation Current Visit: Yes Status: Acute yesterday evening patient was evaluated for tachycardia. HR was 160-170s. EKG showed afb RVR He was given IV lopressor and started on amiodarone. -Today HR is 90-110 -d/c amiodarone Qualifiers: Atrial fibrillation type: chronic Qualified Code(s): I48.2 - Chronic atrial fibrillation (8) DVT prophylaxis Current Visit: Yes Status: Acute continue heparin. Subjective Principal diagnosis: Shock Interval history: 6-year-old male with history of pancreatic head mass presented to local ER with nausea vomiting abdominal pain. he underwent Whipple's procedure at [facility] which was aborted secondary to vascular involvement. patient was found to be hypotensiveon presentation. Patient was admitted septic shock secondary to elevation of lactic acid of 8, and culture is growing Streptococcus. This morning patient was drowsy after receiving IV push Dilaudid. He complained of diffuse abdominal pain. Objective PUL Vital signs: Last Vital Signs Temp 97.4 F L 01/13/17 04:52 Pulse 106 01/13/17 08:00 Resp 24 01/13/17 08:00 BP 100/70 01/13/17 08:00 Pulse Ox 91 L 01/13/17 08:00 General appearance: no acute distress Effort: normal Auscultation: left: rhonchi, right: clear Cardiovascular: irregular rhythm Gastrointestinal: absent bowel sounds, tender (iffuse) Integumentary: normal (midline scar on abdomen) Extremities: no cyanosis, no edema, no clubbing, pulses normal (1+ bilaterally) , cool (right foot) normal mental status mood appropriate Results - Laboratory Findings CBC and BMP: 01/13/17 03:20 01/13/17 03:20 PT/INR, D-dimer PT 17.2 Seconds (9.4-12.1) H 01/13/17 03:20 Abnormal lab findings: Abnormal lab results WBC 21.5 K/mcL (4.3-11.1) H 01/13/17 03:20 RBC 3.63 M/mcL (4.19-5.50) L 01/13/17 03:20 Hgb 10.4 g/dL (12.9-16.9) L 01/13/17 03:20 Hct 30.4 % (37.5-50.1) L 01/13/17 03:20 RDW 16.8 % (11.5-14.5) H 01/13/17 03:20 Plt Count 90 K/mcL (140-400) L 01/13/17 03:20 Band Neutrophils % 18.0 % (0-4) H 01/12/17 03:47 Myelocytes % 4.0 % (0) H 01/12/17 03:47 Neutrophils # 19.4 K/mcL (1.6-8.9) H 01/12/17 03:47 Platelet Estimate Slight Decrease (Normal) L 01/12/17 03:47 Immature Plt Fraction 7.7 % (1.1-6.1) H 01/13/17 03:20 PT 17.2 Seconds (9.4-12.1) H 01/13/17 03:20 VBG pH 7.22 pH Units (7.32-7.42) L 01/11/17 06:22 VBG pO2 56 mmHg (25-40) H 01/11/17 06:22 VBG HCO3 20.1 mEq/L (21-27) L 01/11/17 06:22 BUN 44 mg/dL (8-26) H 01/13/17 03:20 Creatinine 1.43 mg/dL (0.72-1.25) H 01/13/17 03:20 Est GFR (Non-Af Amer) 49 (> 60) L 01/13/17 03:20 BUN/Creatinine Ratio 31 (6-26) H 01/13/17 03:20 Glucose 118 mg/dL (70-99) H 01/13/17 03:20 POC Glucose 105 (58-89) H 01/12/17 23:27 Lactic Acid 3.6 mmol/L (0.5-2.2) H 01/11/17 06:22 Calcium 7.7 mg/dL (8.6-10.8) L 01/13/17 03:20 Ionized Calcium 1.09 mmol/L (1.15-1.35) L 01/13/17 03:20 Phosphorus 5.1 mg/dL (2.3-4.7) H 01/13/17 03:20 AST 132 Units/L (5-34) H 01/13/17 03:20 ALT 85 Units/L (0-55) H 01/13/17 03:20 Troponin I 0.04 ng/mL (0-0.03) H* 01/11/17 02:22 Serum Total Protein 4.8 g/dL (6.0-8.3) L 01/13/17 03:20 Albumin 1.1 g/dL (3.5-5.0) L 01/13/17 03:20 Globulin 3.7 g/dL (2.4-3.5) H 01/13/17 03:20 Albumin/Globulin Ratio 0.3 (1.1-2.2) L 01/13/17 03:20 Amylase 8 Units/L (25-125) L 01/10/17 14:20 Lipase < 4 Units/L (8-78) L 01/10/17 14:20 Vancomycin Trough 24.9 mcg/mL (10-20) H* 01/12/17 13:45 - Microbiology Findings Microbiology Findings: Microbiology, Last 48 Hours 01/11/17 01:51 Blood Culture - Preliminary Peripheral Venipuncture No growth. - Clinical Findings Intake & Output: Intake & Output 01/12/17 01/13/17 01/13/17 23:59 07:59 15:59 Intake Total 357 / 357 1046 / 1046 0 / 0 Output Total 600 / 600 700 / 700 Balance -243 / -243 346 / 346 0 / 0 Weight 90.265 kg Consult Discharge Plan - Plan Referrals: NO,PCP [Primary Care Provider] - <Erica Perez - Last Filed: 01/13/17 12:34> Objective PUL Vital signs: Last Vital Signs Temp 98.0 F 01/13/17 11:28 Pulse 92 01/13/17 12:00 Resp 18 01/13/17 12:00 BP 100/63 01/13/17 12:00 Pulse Ox 91 L 01/13/17 12:00 Results - Laboratory Findings CBC and BMP: 01/13/17 03:20 01/13/17 03:20 PT/INR, D-dimer PT 17.2 Seconds (9.4-12.1) H 01/13/17 03:20 Abnormal lab findings: Abnormal lab results WBC 21.5 K/mcL (4.3-11.1) H 01/13/17 03:20 RBC 3.63 M/mcL (4.19-5.50) L 01/13/17 03:20 Hgb 10.4 g/dL (12.9-16.9) L 01/13/17 03:20 Hct 30.4 % (37.5-50.1) L 01/13/17 03:20 RDW 16.8 % (11.5-14.5) H 01/13/17 03:20 Plt Count 90 K/mcL (140-400) L 01/13/17 03:20 Band Neutrophils % 18.0 % (0-4) H 01/12/17 03:47 Myelocytes % 4.0 % (0) H 01/12/17 03:47 Neutrophils # 19.4 K/mcL (1.6-8.9) H 01/12/17 03:47 Platelet Estimate Slight Decrease (Normal) L 01/12/17 03:47 Immature Plt Fraction 7.7 % (1.1-6.1) H 01/13/17 03:20 PT 17.2 Seconds (9.4-12.1) H 01/13/17 03:20 VBG pH 7.22 pH Units (7.32-7.42) L 01/11/17 06:22 VBG pO2 56 mmHg (25-40) H 01/11/17 06:22 VBG HCO3 20.1 mEq/L (21-27) L 01/11/17 06:22 BUN 44 mg/dL (8-26) H 01/13/17 03:20 Creatinine 1.43 mg/dL (0.72-1.25) H 01/13/17 03:20 Est GFR (Non-Af Amer) 49 (> 60) L 01/13/17 03:20 BUN/Creatinine Ratio 31 (6-26) H 01/13/17 03:20 Glucose 118 mg/dL (70-99) H 01/13/17 03:20 POC Glucose 107 (58-89) H 01/13/17 11:25 Lactic Acid 3.6 mmol/L (0.5-2.2) H 01/11/17 06:22 Calcium 7.7 mg/dL (8.6-10.8) L 01/13/17 03:20 Ionized Calcium 1.09 mmol/L (1.15-1.35) L 01/13/17 03:20 Phosphorus 5.1 mg/dL (2.3-4.7) H 01/13/17 03:20 AST 132 Units/L (5-34) H 01/13/17 03:20 ALT 85 Units/L (0-55) H 01/13/17 03:20 Troponin I 0.04 ng/mL (0-0.03) H* 01/11/17 02:22 Serum Total Protein 4.8 g/dL (6.0-8.3) L 01/13/17 03:20 Albumin 1.1 g/dL (3.5-5.0) L 01/13/17 03:20 Globulin 3.7 g/dL (2.4-3.5) H 01/13/17 03:20 Albumin/Globulin Ratio 0.3 (1.1-2.2) L 01/13/17 03:20 Amylase 8 Units/L (25-125) L 01/10/17 14:20 Lipase < 4 Units/L (8-78) L 01/10/17 14:20 Vancomycin Trough 24.9 mcg/mL (10-20) H* 01/12/17 13:45 - Microbiology Findings Microbiology Findings: Microbiology, Last 48 Hours 01/11/17 01:51 Blood Culture - Preliminary Peripheral Venipuncture No growth. - Clinical Findings Intake & Output: Intake & Output 01/12/17 01/13/17 01/13/17 23:59 07:59 15:59 Intake Total 357 / 357 1046 / 1046 990 / 990 Output Total 600 / 600 700 / 700 275 / 275 Balance -243 / -243 346 / 346 715 / 715 Weight 90.265 kg - Attending Attestation I examined this patient and my medical decision-making was reviewed with the TELEVISION CAMERAMAN/PA/Advanced Practice Nurse/Resident Physician. I agree with the documented findings, disposition and treatment plan as described except to the extent set forth below. Patient seen and examined. Labs, radiology, chart personally reviewed. Agree with resident's history and physical, assessment, plan with following comments: MESH MAN: Patient follows commands, Pulmonary: Acceptable oxygenation and ventilation Cardiovascular: stable Overall poor prognosis and palliative care has a meeting with patient and family. Possible transfer to medical bed after that. Continue current treatment , mainly pain control.
[2017-01-13] MEDS ORDERED: Ringers Solution, Lactated 1,000 ML IVC SCH (08:31)
[2017-01-13] MEDS: FentaNYL (PF) 1,000 MCG in 0.9 % Sodium Chloride 80 ML IVC SCH ×3 (08:59→18:33)
--- NOTE | 2017-01-13 10:17 | Palliative Progress Note ---
Date of Encounter: 01/13/17 Time of Encounter: 10:15 - Assessment and plan (1) Abdominal pain Current Visit: Yes Status: Chronic Assessment and plan: Continue with Fentanyl drip with bolus dosing as needed. Will titrate as needed. Discussed with ICU team and primary nurse. Stop IV hydromorphone for now. Update: Mr. Santoyo desires to transition to DNR comfort care, and seek hospice services. Will maintain fentanyl drip, with boluses of hydromorphone for breakthrough pain. Palliative for follow closely for intense symptom management. Qualifiers: Abdominal location: generalized Qualified Code(s): R10.84 - Generalized abdominal pain (2) Sepsis associated hypotension Current Visit: Yes Status: Acute (3) Goals of care, counseling/discussion Current Visit: Yes Status: Acute Assessment and plan: Family meeting planned for today at 1:30 to discuss goals of care. Mr. Santoyo has continued to decline aggressive interventions and diagnostic testing. He requests comfort care and would like to discuss hospice with his family. At this time, he is not stable for discharge out of the facility due to inadequate pain control. Will discuss further options during family meeting. Update: Follow-up family meeting with the patient, significant other-Elmira, daughter/healthcare POA-Anitha regarding goals of care. Mr. Santoyo was very clear with his goals of care being comfort and quality of life along with aggressive pain management. He voiced his desire is to be comfort care, and enroll in hospice care. Discussed hospice services with the patient's support system. We will transition to DNR comfort care, adjust pain medications for aggressive symptom management, transition out of the intensive care unit. Will likely transitioned to general inpatient hospice care tomorrow for aggressive symptom management. Discussed further complaints of care with the patient's daughter. The palliative care team will continue to follow. Thank you for this consultation. (4) Atrial fibrillation Current Visit: Yes Status: Acute Assessment and plan: Rate controlled, amiodarone drip discontinued. Qualifiers: Atrial fibrillation type: chronic Qualified Code(s): I48.2 - Chronic atrial fibrillation (5) Pancreatic cancer Current Visit: Yes Status: Chronic Assessment and plan: Oncology following. Qualifiers: Pancreatic malignancy location: unspecified Qualified Code(s): C25.9 - Malignant neoplasm of pancreas, unspecified - Time Spent With Patient Total time spent is greater than 50% in coordination of care (as documented) at patient's floor/unit and/or counseling patient: - Subjective Interval history: Mr. Santoyo is lying in bed with minimal movement due to pain. He has required the use of a fentanyl drip with bolus and titration for comfort. He continues to report pain of 7/10 to the abdomen described as a sharp pain. He remains in atrial fibrillation, but rate controlled and amiodarone was discontinued. - Constitutional Vitals: Abnormal lab results WBC 21.5 K/mcL (4.3-11.1) H 01/13/17 03:20 RBC 3.63 M/mcL (4.19-5.50) L 01/13/17 03:20 Hgb 10.4 g/dL (12.9-16.9) L 01/13/17 03:20 Hct 30.4 % (37.5-50.1) L 01/13/17 03:20 RDW 16.8 % (11.5-14.5) H 01/13/17 03:20 Plt Count 90 K/mcL (140-400) L 01/13/17 03:20 Band Neutrophils % 18.0 % (0-4) H 01/12/17 03:47 Myelocytes % 4.0 % (0) H 01/12/17 03:47 Neutrophils # 19.4 K/mcL (1.6-8.9) H 01/12/17 03:47 Platelet Estimate Slight Decrease (Normal) L 01/12/17 03:47 Immature Plt Fraction 7.7 % (1.1-6.1) H 01/13/17 03:20 PT 17.2 Seconds (9.4-12.1) H 01/13/17 03:20 VBG pH 7.22 pH Units (7.32-7.42) L 01/11/17 06:22 VBG pO2 56 mmHg (25-40) H 01/11/17 06:22 VBG HCO3 20.1 mEq/L (21-27) L 01/11/17 06:22 BUN 44 mg/dL (8-26) H 01/13/17 03:20 Creatinine 1.43 mg/dL (0.72-1.25) H 01/13/17 03:20 Est GFR (Non-Af Amer) 49 (> 60) L 01/13/17 03:20 BUN/Creatinine Ratio 31 (6-26) H 01/13/17 03:20 Glucose 118 mg/dL (70-99) H 01/13/17 03:20 POC Glucose 105 (58-89) H 01/12/17 23:27 Lactic Acid 3.6 mmol/L (0.5-2.2) H 01/11/17 06:22 Calcium 7.7 mg/dL (8.6-10.8) L 01/13/17 03:20 Ionized Calcium 1.09 mmol/L (1.15-1.35) L 01/13/17 03:20 Phosphorus 5.1 mg/dL (2.3-4.7) H 01/13/17 03:20 AST 132 Units/L (5-34) H 01/13/17 03:20 ALT 85 Units/L (0-55) H 01/13/17 03:20 Troponin I 0.04 ng/mL (0-0.03) H* 01/11/17 02:22 Serum Total Protein 4.8 g/dL (6.0-8.3) L 01/13/17 03:20 Albumin 1.1 g/dL (3.5-5.0) L 01/13/17 03:20 Globulin 3.7 g/dL (2.4-3.5) H 01/13/17 03:20 Albumin/Globulin Ratio 0.3 (1.1-2.2) L 01/13/17 03:20 Amylase 8 Units/L (25-125) L 01/10/17 14:20 Lipase < 4 Units/L (8-78) L 01/10/17 14:20 Vancomycin Trough 24.9 mcg/mL (10-20) H* 01/12/17 13:45 General appearance: Present: cooperative, mild distress (related to pain) - ENT ENT exam: Present: mucous membranes dry - Respiratory Respiratory exam: Present: decreased breath sounds, rhonchi (R>L), tachypnea - Cardiovascular Cardiovascular exam: Present: irregular rhythm, tachycardia - GI/Abdominal GI/Abdominal exam: Present: firm, guarding, hypoactive bowel sounds, tenderness - Extremities Exam Extremities exam: Absent: normal inspection (bilateral feet cool to touch with discoloration) - Neurological Exam Neurological exam: Present: alert, oriented X3, no focal deficits, strengths equal and symetr throughout (very weak ) - Psychiatric Psychiatric exam: Present: flat affect - Skin Skin exam: Absent: warm (bilateral feet cool to touch.) Palliative Quality Palliative Quality: Screen for Code Status: Yes, Screen for Goals of Care: Yes, Screen for Pain: Yes, If Pain Regimen Started, Initiate Bowel Regimen: Yes, Screen for Nausea/Vomitting: Yes Code Status: 01/10/17 13:49 Resuscitation Status: Active [RES] Routine Comment: Resuscitation Status: [id number] - Labs CBC & Chem 7: 01/13/17 03:20 01/13/17 03:20 Labs: Laboratory Results - last 24 hr 01/12/17 01/12/17 01/12/17 11:40 11:41 13:45 WBC RBC Hgb Hct MCV MCH MCHC RDW Plt Count MPV Immature Plt Fraction PT INR Sodium Potassium Chloride Carbon Dioxide BUN Creatinine Est GFR ( Amer) Est GFR (Non-Af Amer) BUN/Creatinine Ratio Glucose POC Glucose 124 H Calculated Osmolality Calcium Ionized Calcium 1.05 L Phosphorus Magnesium Total Bilirubin AST ALT Alkaline Phosphatase Serum Total Protein Albumin Globulin Albumin/Globulin Ratio Vancomycin Trough 24.9 H* 01/12/17 01/12/17 01/13/17 20:30 23:27 03:20 WBC 21.5 H RBC 3.63 L Hgb 10.4 L Hct 30.4 L MCV 83.7 MCH 28.7 MCHC 34.2 RDW 16.8 H Plt Count 90 L MPV 11.0 Immature Plt Fraction 7.7 H PT INR Sodium Potassium Chloride Carbon Dioxide BUN Creatinine Est GFR ( Amer) Est GFR (Non-Af Amer) BUN/Creatinine Ratio Glucose POC Glucose 105 H Calculated Osmolality Calcium Ionized Calcium 1.07 L Phosphorus Magnesium Total Bilirubin AST ALT Alkaline Phosphatase Serum Total Protein Albumin Globulin Albumin/Globulin Ratio Vancomycin Trough 01/13/17 01/13/17 01/13/17 03:20 03:20 03:20 WBC RBC Hgb Hct MCV MCH MCHC RDW Plt Count MPV Immature Plt Fraction PT 17.2 H INR 1.6 Sodium 136 Potassium 3.6 Chloride 105 Carbon Dioxide 23 BUN 44 H Creatinine 1.43 H Est GFR ( Amer) 60 Est GFR (Non-Af Amer) 49 L BUN/Creatinine Ratio 31 H Glucose 118 H POC Glucose Calculated Osmolality 294 Calcium 7.7 L Ionized Calcium 1.09 L Phosphorus 5.1 H Magnesium 2.1 Total Bilirubin 0.5 AST 132 H ALT 85 H Alkaline Phosphatase 86 Serum Total Protein 4.8 L Albumin 1.1 L Globulin 3.7 H Albumin/Globulin Ratio 0.3 L Vancomycin Trough - ABG Interpretation ABG results: PT/INR, D-dimer PT 17.2 Seconds (9.4-12.1) H 01/13/17 03:20 Consult Discharge Plan - Plan Referrals: NO,PCP [Primary Care Provider] -
[2017-01-13 13:03] VITALS: BP 113/66
[2017-01-13] MEDS ORDERED: Atropine Sulfate 300 DROP/15 ML BOTTLE SL PRN (14:39)
[2017-01-13] MEDS ORDERED: *HR* Promethazine 25 MG/ML VIAL IVP ONE ×2 (14:40→15:12)
[2017-01-13] MEDS ORDERED: *HR* HYDROmorphone 2 MG/ML SYRINGE IVP PRN (14:40)
[2017-01-13] MEDS ORDERED: Scopolamine Patch 1.5 MG PATCH.TD72 TD SCH (14:45)
[2017-01-13] MEDS ORDERED: Ondansetron 4 MG/2 ML VIAL IVP PRN (15:12)
[2017-01-13] MEDS ORDERED: Bisacodyl 10 MG RECTAL SUPPOSITORY RC PRN (15:12)
[2017-01-13] MEDS: *HR* HYDROmorphone 2 MG/ML SYRINGE IVP PRN ×3 (15:26→20:15)
[2017-01-13] MEDS: Atropine Sulfate 300 DROP/15 ML BOTTLE SL PRN (18:21)
[2017-01-13] MEDS: *HR* LORazepam 2 MG/ML VIAL IVP PRN (20:16)
[2017-01-14] MEDS: Hydrocortisone Sodium Succ 100 MG/2 ML VIAL IVP SCH ×4 (03:47→17:24)
[2017-01-14] MEDS: FentaNYL (PF) 1,000 MCG in 0.9 % Sodium Chloride 80 ML IVC SCH ×2 (04:42→15:38)
--- NOTE | 2017-01-14 09:01 | General Surgery Progress Note ---
Date of Encounter: 01/14/17 Time of Encounter: 09:01 - Assessment and Plan (1) Abdominal pain Current Visit: Yes Status: Chronic The patient developed an acute abdomen after radiation therapy for pancreatic cancer. It is likely that he has significant gastritis and small bowel enteritis in the radiated field another possibility is typhlitis. He is a DNR and wants to avoid surgery at all costs. I will be glad to follow along with you and help with surgical decision making. 01/11/17: Pt. is still having abdominal pain, but nausea is improved. Currently in ICU but no longer requiring vasopressor support, however he remains hypotensive and tachycardic. No surgical interventions at this time. 01/12/17: pt. is critically ill. He remains hypotensive and tachycardic. Blood cultures revealed gram positive cocci. Oncology recommended no further imaging at this time. No surgical interventions at this time. Will continue to follow along clinically. 01/14/17: Pt. has been transitioned to DRN CC code status. He has voiced that he wants to avoid surgery. Surgery will sign off at this time. Thank you for allowing us to participate in the care of Mr. Santoyo. Please call with any questions. Re-consult PRN. Qualifiers: Abdominal location: generalized Qualified Code(s): R10.84 - Generalized abdominal pain Subjective Patient reports: still having pain Objective Intake and Output 01/13/17 01/14/17 01/14/17 23:59 07:59 15:59 Intake Total 100 / 100 Output Total 800 / 800 Balance -700 / -700 Intake: IV Fluids 100 / 100 FentaNYL (PF) 1,000 MCG 100 / 100 In 0.9 % Sodium Chloride 80 ML @ 50 MCG/HR 5 mls/ hr IVC CONT VERITO Rx#: [id number] Oral 0 / 0 Output: Catheter 800 / 800 - General physical appearance moderate distress, chronically ill - Eyes normal ocular movement - Neck Neck exam: trachea midline - Respiratory clear to auscultation - Cardiovascular Cardiovascular exam: Present: tachycardia - Abdomen Abdomen: Present: bowel sounds present - Neurologic CN 2-12 grossly intact - Labs 01/13/17 03:20 01/13/17 03:20 Consult Discharge Plan - Plan Referrals: NO,PCP [Primary Care Provider] - - Attending Attestation The patient is seen and evaluated. He does not wish to proceed with surgery at this time. This is completely understandable. We will be available for repeat consultation if requested. We will sign off. Mohit Redman MD FACS
--- NOTE | 2017-01-14 09:02 | Palliative Progress Note ---
Date of Encounter: 01/14/17 Time of Encounter: 08:30 - Assessment and plan (1) Abdominal pain Current Visit: Yes Status: Chronic Assessment and plan: Patient has fentanyl gtt infusing and appears to be comfortable and family reports that he rested well last night. Had 3 additional doses of IV dilaudid for comfort. Will continue to assess. Qualifiers: Qualified Code(s): R10.84 - Generalized abdominal pain (2) Goals of care, counseling/discussion Current Visit: Yes Status: Acute Assessment and plan: Patient appears comfortable and VS currently stable with bilateral toe cyanosis. Lower extremities warm. Discussed transition to [facility] hospice care and family agrees to transition. Educated on hospice visitation and role with transition. Family verbalized understanding and agrees to transition. Assessment complete and hospice care notified. Diagnosis is Pancreatic Cancer. (3) Sepsis associated hypotension Current Visit: Yes Status: Acute (4) Pancreatic cancer Current Visit: Yes Status: Chronic Qualifiers: Qualified Code(s): C25.9 - Malignant neoplasm of pancreas, unspecified - Time Spent With Patient Total time spent is greater than 50% in coordination of care (as documented) at patient's floor/unit and/or counseling patient: 25 - 35 minutes - Subjective Interval history: Patient is in bed and surrounded by family. Family reports that patient had a good night in regards to pain and comfort. Patient sleeping but opens eyes to name and assessment of abdomen. Continuous fentanyl gtt infusing per a-port. - Constitutional Vitals: Abnormal lab results WBC 21.5 K/mcL (4.3-11.1) H 01/13/17 03:20 RBC 3.63 M/mcL (4.19-5.50) L 01/13/17 03:20 Hgb 10.4 g/dL (12.9-16.9) L 01/13/17 03:20 Hct 30.4 % (37.5-50.1) L 01/13/17 03:20 RDW 16.8 % (11.5-14.5) H 01/13/17 03:20 Plt Count 90 K/mcL (140-400) L 01/13/17 03:20 Band Neutrophils % 18.0 % (0-4) H 01/12/17 03:47 Myelocytes % 4.0 % (0) H 01/12/17 03:47 Neutrophils # 19.4 K/mcL (1.6-8.9) H 01/12/17 03:47 Platelet Estimate Slight Decrease (Normal) L 01/12/17 03:47 Immature Plt Fraction 7.7 % (1.1-6.1) H 01/13/17 03:20 PT 17.2 Seconds (9.4-12.1) H 01/13/17 03:20 VBG pH 7.22 pH Units (7.32-7.42) L 01/11/17 06:22 VBG pO2 56 mmHg (25-40) H 01/11/17 06:22 VBG HCO3 20.1 mEq/L (21-27) L 01/11/17 06:22 BUN 44 mg/dL (8-26) H 01/13/17 03:20 Creatinine 1.43 mg/dL (0.72-1.25) H 01/13/17 03:20 Est GFR (Non-Af Amer) 49 (> 60) L 01/13/17 03:20 BUN/Creatinine Ratio 31 (6-26) H 01/13/17 03:20 Glucose 118 mg/dL (70-99) H 01/13/17 03:20 POC Glucose 107 (58-89) H 01/13/17 11:25 Lactic Acid 3.6 mmol/L (0.5-2.2) H 01/11/17 06:22 Calcium 7.7 mg/dL (8.6-10.8) L 01/13/17 03:20 Ionized Calcium 1.09 mmol/L (1.15-1.35) L 01/13/17 03:20 Phosphorus 5.1 mg/dL (2.3-4.7) H 01/13/17 03:20 AST 132 Units/L (5-34) H 01/13/17 03:20 ALT 85 Units/L (0-55) H 01/13/17 03:20 Troponin I 0.04 ng/mL (0-0.03) H* 01/11/17 02:22 Serum Total Protein 4.8 g/dL (6.0-8.3) L 01/13/17 03:20 Albumin 1.1 g/dL (3.5-5.0) L 01/13/17 03:20 Globulin 3.7 g/dL (2.4-3.5) H 01/13/17 03:20 Albumin/Globulin Ratio 0.3 (1.1-2.2) L 01/13/17 03:20 Amylase 8 Units/L (25-125) L 01/10/17 14:20 Lipase < 4 Units/L (8-78) L 01/10/17 14:20 Vancomycin Trough 24.9 mcg/mL (10-20) H* 01/12/17 13:45 - Head Head exam: Present: atraumatic - Eye Eye exam: Present: PERRL Pupils: Present: PERRL - ENT ENT exam: Present: mucous membranes moist - Neck Neck exam: Present: tenderness - Respiratory Respiratory exam: Present: CTAB - Cardiovascular Cardiovascular exam: Present: irregular rhythm, +S1, +S2 - Expanded Cardiovascular Exam Peripheral pulses: 1+: Femoral (L) PM, Femoral (R) PM, Posterior Tibialis (L), Posterior Tibialis (R), Dorsalis Pedis (L) PM, Dorsalis Pedis (R) PM, 2+: Carotid (L) PM, Carotid (R) PM, Radial (L), Radial (R) - GI/Abdominal GI/Abdominal exam: Present: distended, firm, guarding, hypoactive bowel sounds - Expanded Abdominal Exam GI/Abdominal exam: Present: ascites - Rectal Rectal exam: Present: deferred - Additional comments: Hammond catheter will small amount clear yellow urine. - Extremities Exam Extremities exam: Present: pedal edema, tenderness (Bilateral 3+ edema to ankles and hands) - Neurological Exam Neurological exam: Present: altered (sleeping, opens eyes in response to abdominal assessment) - Psychiatric Psychiatric exam: Present: flat affect - Skin Skin exam: Present: warm Palliative Quality Palliative Quality: Screen for Code Status: Yes, Screen for Goals of Care: Yes, Screen for Pain: Yes, If Pain Regimen Started, Initiate Bowel Regimen: Yes, Screen for Nausea/Vomitting: Yes Code Status: 01/10/17 13:49 Resuscitation Status: Active [RES] Routine Comment: Resuscitation Status: [id number] Resuscitation Status: Active [RES] Routine Comment: Resuscitation Status: DNR-Comfort Care - Labs CBC & Chem 7: 01/13/17 03:20 01/13/17 03:20 Labs: Laboratory Results - last 24 hr 01/13/17 11:25 POC Glucose 107 H - ABG Interpretation ABG results: PT/INR, D-dimer PT 17.2 Seconds (9.4-12.1) H 01/13/17 03:20 Consult Discharge Plan - Plan Referrals: NO,PCP [Primary Care Provider] -
[2017-01-14] MEDS: *HR* HYDROmorphone 2 MG/ML SYRINGE IVP PRN ×3 (09:04→21:03)
--- NOTE | 2017-01-14 14:02 | Event Note ---
Date of Encounter: 01/14/17 Time of Encounter: 14:00 Hospice medical auditor certification of terminal illness: Hospice benefit. Start: 01/14/2017 Hospice benefit. In: +90 days Palliative performance scale: Approximately 20% History: Patient with end-stage pancreatic cancer. No other treatment is available for him. He wishes to have no further treatment even if it was available. I find These findings support a life expectancy of 6 months or less. I attest that I have compose the above narrative based on my review of the patient's medical records, and or on my examination of the patient. Salvador Kelley M.D. Associate medical device engineer. [facility], [place]
[2017-01-15] MEDS: FentaNYL (PF) 1,000 MCG in 0.9 % Sodium Chloride 80 ML IVC SCH ×2 (01:41→13:09)
[2017-01-15] MEDS: *HR* HYDROmorphone 2 MG/ML SYRINGE IVP PRN ×4 (01:45→17:04)
[2017-01-15] MEDS ORDERED: *HR* HYDROmorphone 2 MG/ML SYRINGE IVP PRN (12:52)
[2017-01-15] MEDS: Hydrocortisone Sodium Succ 100 MG/2 ML VIAL IVP SCH ×3 (13:00→19:33)
[2017-01-15] MEDS: *HR* LORazepam 2 MG/ML VIAL IVP PRN (15:59)
[2017-01-15] MEDS: Atropine Sulfate 300 DROP/15 ML BOTTLE SL PRN (20:44)
--- NOTE | 2017-01-16 09:17 | Death Note ---
Discharge Sum: Summary - Date and Time Date of admission: 01/10/17 13:11 Date of : 01/15/17 Time of : 20:55 - Summary Details: The patient was brought onto the general inpatient hospice service for Medicare. Patient's pain was well controlled patient did have a wonderful lucid interval briefly with family patient passed comfortably with family at bedside last night 2055 hrs. Cause of was pancreatic cancer, which he had had for less than a year. Comorbidities, none, Patient was a smoker. - Additional Data Confirmation of as documented by pronouncing clinician: no pulse, no respirations, no heart sounds Family: at bedside Attending/PCP notified?: Yes Attending physician: Ritesh Lackey MD Was code activated?: No Autopsy requested?: No coroner/medical examiner notified?: No Organ bank notified?: Yes Advance directives: Yes Hospice patient?: Yes Discharge Sum: Diag - PCOD Probable Cause of : Respiratory arrest Discharge Sum: Prov - Provider Primary care physician: PCP NO Consults: 01/10/17 14:35 Consult to Surgery [CONS] Routine Consulting Provider: Mohit Redman Reason for Consult: acute abdomen, history of pancreatic procedure Call Completed: No 01/11/17 08:30 Consult to Critical Care [CONS] Stat Consulting Provider: Pulm [facility] Reason for Consult: Septic shock, known to your team Call Completed: No 01/12/17 08:24 Consult to Palliative Care [CONS] Routine Comment: Consulting Provider: Palliative Care Krystal 01/12/17 10:55 Consult to Oncology [CONS] Routine Consulting Provider: Oncology [facility] [place] Reason for Consult: Pancreatic cancer Call Completed: Yes
[2017-01-16] MEDS ORDERED: Scopolamine Patch 1.5 MG PATCH.TD72 TD SCH (14:45)
== END 2017-01-15 20:55 | disposition expired | DRG 871 ==
LOC: ICNU 13:11 → SUATTDRO 13:11 → 2ANU 01-13 16:07
PROVIDERS: ADMIT Internal Medicine; ATTEND Internal Medicine